=== PATIENT | female | born 1955 | race Caucasian/White ===

== ENCOUNTER 2017-06-07 19:34 | Emergency (ER) | payer BC, SELFPAY ==
[2017-06-07 20:15] VITALS: BP 150/81; PULSE 81; RESP 20; TEMP 36.9; O2SAT 98; BMI 22.4
[2017-06-07 20:35] LABS: UTC Influenza A Antigen Negative (Negative); UTC Influenza B Antigen Negative (Negative)
--- NOTE | 2017-06-07 20:47 | HMH.EDUTC ---
[facility] [place] Clinical Impression: Sinusitis Qualifiers: Sinusitis location: other Chronicity: unspecified Qualified Code(s): J32.9 - Chronic sinusitis, unspecified Disposition: Home, Self-Care Condition on Discharge: Good Instructions: Sinusitis, Sinus Headache, DI for Sinusitis Additional Instructions: Take medication as prescribed Follow up with family doctor if no improvement or worsening of symptoms REturn if needed Use Vaporizer/humidifier will help with cough and nasal congestion Over the counter Motrin or Tylenol as needed for fever or pain Prescriptions: Dextromethorphan Polistirex [Delsym] 10 ml PO Q12H PRN #250 yohannes.er.12h PRN Reason: Cough Doxycycline Monohydrate 100 mg PO BID #14 cap Fluticasone Propionate [Flonase 50mcg nasal spray 16gm] 2 spr NS DAILY #1 bottle Time of Disposition: 21:00 Medical Decision Making - Medical Records Medical records reviewed: Yes: I reviewed the patient's medical records. Vital Signs: 06/07/17 20:15 Temperature 98.4 F Temperature Source Temporal Artery Scan Pulse Rate [Right Radial] 81 Respiratory Rate 20 Blood Pressure [Right Arm] 150/81 Blood Pressure Mean [Right Arm] 104 Blood Pressure Source [Right Arm] Automatic Cuff Blood Pressure Position [Right Arm] Sitting 02 Sat by Pulse Oximetry 98 Oxygen Delivery Method Room Air - Lab Data Lab Results 06/07/17 20:15: Influenza Type A Ag Negative, Influenza Type B Ag Negative - Sam Inquiry Pt receiving controlled substance: No Sam was queried for this patient: No [facility] [place] HPI - General Stated complaint: cough, headache, sore throat Mode of Arrival: Ambulatory Source of Information: Patient Limitations: No Limitations Description of Symptoms (Recalled from Triage Doc. by RN): PT C/O COUGH, FEVER, AND EXHAUSTION FOR 3 DAYS. HEENT Symptoms (Recalled from RN notes): No Resp Symptoms (Recalled from RN notes): Yes (COUGH) Skin Symptoms (Recalled from RN notes): No MS Symptoms (Recalled from RN notes): No Functional Status (Recalled from RN notes): NA - History of Present Illness Provider Complaint: Patient state that she has been having sinus pain and pressure, cough, stuffy nose, headache for 3 days now States that she was sick a couple of weeks ago and thought she was doing better then it returned State that she is feeling sore under her eyes and feels pressure like feeling in her ears - Related Data Previous Rx's Medication Instructions Recorded Dextromethorphan Polistirex 10 ml PO Q12H PRN #250 yohannes.er.12h 06/07/17 [Delsym] Doxycycline Monohydrate 100 mg PO BID #14 cap 06/07/17 Fluticasone Propionate [Flonase 2 spr NS DAILY #1 bottle 06/07/17 50mcg nasal spray 16gm] Allergies Allergy/AdvReac Type Severity Reaction Status Date / Time Penicillins [PENICILLINS] Allergy Unknown Verified 06/07/17 19:54 - Worker's Comp Is this a Worker's Comp case?: No [facility] History I have reviewed the patient's past medical history: Yes - *Social History Smoking Status: Never smoker Alcohol Intake: never - Psychiatric History Expresses thoughts of harming self/others: None Suicide Plan Description: No Plan ROS Obtained: Yes All systems reviewed & no additional complaints - Constitutional Constitutional: Reports body ache, Reports chills, Reports fever(s), Reports headache(s) - ENT Ears, Nose, Mouth, and Throat: Reports sinus pain, Reports sinus pressure, Reports sore throat Physical Exam - General General appearance: alert, in no apparent distress - Expanded ENT Exam Nose exam: Present: sinus tenderness Nasal speculum exam: Bilateral: purulent discharge (Reports thick yellowish green drainage) Comment: Throat red, irritated drainage noted no exudate - Respiratory Respiratory exam: Present: normal lung sounds bilaterally. Absent: respiratory distress - Cardiovascular Cardiovascular exam: Present: regular rate, normal rhythm. Absent: JVD - Abdominal Exam Abdomi
--- NOTE | 2017-06-07 20:53 | ED_ITS ---
[facility] [place] Disposition Clinical Impression: Sinusitis Qualifiers: Sinusitis location: other Chronicity: unspecified Qualified Code(s): J32.9 - Chronic sinusitis, unspecified Disposition: Home, Self-Care Condition on Discharge: Good Instructions: Sinusitis, Sinus Headache, DI for Sinusitis Additional Instructions: Take medication as prescribed Follow up with family doctor if no improvement or worsening of symptoms REturn if needed Use Vaporizer/humidifier will help with cough and nasal congestion Over the counter Motrin or Tylenol as needed for fever or pain Prescriptions: Dextromethorphan Polistirex [Delsym] 10 ml PO Q12H PRN #250 yohannes.er.12h PRN Reason: Cough Doxycycline Monohydrate 100 mg PO BID #14 cap Fluticasone Propionate [Flonase 50mcg nasal spray 16gm] 2 spr NS DAILY #1 bottle Time of Disposition: 21:00 Medical Decision Making - Medical Records Medical records reviewed: Yes: I reviewed the patient's medical records. Vital Signs: 06/07/17 20:15 Temperature 98.4 F Temperature Source Temporal Artery Scan Pulse Rate [Right Radial] 81 Respiratory Rate 20 Blood Pressure [Right Arm] 150/81 Blood Pressure Mean [Right Arm] 104 Blood Pressure Source [Right Arm] Automatic Cuff Blood Pressure Position [Right Arm] Sitting 02 Sat by Pulse Oximetry 98 Oxygen Delivery Method Room Air - Lab Data Lab Results 06/07/17 20:15: Influenza Type A Ag Negative, Influenza Type B Ag Negative - Sam Inquiry Pt receiving controlled substance: No Sam was queried for this patient: No [facility] [place] HPI - General Stated complaint: cough, headache, sore throat Mode of Arrival: Ambulatory Source of Information: Patient Limitations: No Limitations Description of Symptoms (Recalled from Triage Doc. by RN): PT C/O COUGH, FEVER, AND EXHAUSTION FOR 3 DAYS. HEENT Symptoms (Recalled from RN notes): No Resp Symptoms (Recalled from RN notes): Yes (COUGH) Skin Symptoms (Recalled from RN notes): No MS Symptoms (Recalled from RN notes): No Functional Status (Recalled from RN notes): NA - History of Present Illness Provider Complaint: Patient state that she has been having sinus pain and pressure, cough, stuffy nose, headache for 3 days now States that she was sick a couple of weeks ago and thought she was doing better then it returned State that she is feeling sore under her eyes and feels pressure like feeling in her ears - Related Data Previous Rx's Medication Instructions Recorded Dextromethorphan Polistirex 10 ml PO Q12H PRN #250 yohannes.er.12h 06/07/17 [Delsym] Doxycycline Monohydrate 100 mg PO BID #14 cap 06/07/17 Fluticasone Propionate [Flonase 2 spr NS DAILY #1 bottle 06/07/17 50mcg nasal spray 16gm] Allergies Allergy/AdvReac Type Severity Reaction Status Date / Time Penicillins [PENICILLINS] Allergy Unknown Verified 06/07/17 19:54 - Worker's Comp Is this a Worker's Comp case?: No [facility] History I have reviewed the patient's past medical history: Yes - *Social History Smoking Status: Never smoker Alcohol Intake: never - Psychiatric History Expresses thoughts of harming self/others: None Suicide Plan Description: No Plan ROS Obtained: Yes All systems reviewed & no additional complaints - Constitutional Constitutional: Reports body ache, Reports chills, Reports fever(s), Reports headache
== END 2017-06-07 21:06 | disposition home or self-care (01) ==
PROVIDERS: Emergency Provider Nurse Practitioner
DX: J32.9 Chronic sinusitis, unspecified (principal); Z88.0 Allergy status to penicillin
CPT/HCPCS: 87804; 96372; 99201

== ENCOUNTER → 2019-04-01 10:26 | Outpatient (CLI) | payer BC, SELFPAY ==
--- NOTE | 2019-04-01 10:28 | MM_ITS ---
PROCEDURE: MM DIG SCREENING MAMM BI W/CAD CLINICAL INDICATION: Routine Screening Mammogram There is a history of breast cancer patient's maternal aunt. There has been a previous cyst aspiration left breast. COMPARISON: [facility] DIG MAMM-SCREEN [facility] from 07/07/2014 [facility] DIG MAMM-SCREEN [facility] from 10/11/2015 [facility] DIG MAMM-SCREEN [facility] W/CAD from 03/08/2017 TECHNIQUE: Standard CC and MLO images were obtained. R2 CAD reviewed. FINDINGS: There is a diffusely dense and heterogenic parenchymal pattern somewhat lessening the sensitivity of mammography. The findings of bilateral symmetrical. There are a couple of benign-appearing calcifications right breast. There is no suspicious lesion and no suspicious microcalcifications. IMPRESSION: Diffusely dense parenchymal pattern with no suspicious lesions seen BI-RAD Category: 2 Benign Finding(s) FOLLOW-UP: 1YR 1 Year Follow-up (A letter has been sent to the patient regarding results of the study.) Dictated by: Dr. Zeyad Merlos MD 04/02/2019 16:[address] Zeyad Merlos MD in [place] 04/02/2019 16:21
== END ==
PROVIDERS: PCP Family Medicine; Visit Provider Nurse Practitioner Obstetrics & Gynecology
DX: Z12.31 Encounter for screening mammogram for malignant neoplasm of breast (principal)
CPT/HCPCS: 77067

== ENCOUNTER 2021-10-12 21:35 | Emergency (ER) | payer MEDICARE, SELFPAY ==
[2021-10-12 21:36] VITALS: BP 137/80; PULSE 58; RESP 18; TEMP 36.4; O2SAT 99; BMI 20.8
[2021-10-12 23:50] VITALS: BP 0/0; PULSE 0; RESP 0; TEMP -17.7; TEMP 0; O2SAT 0
== END 2021-10-12 23:52 | disposition left against medical advice (07) ==
LOC: ER 21:41
PROVIDERS: Emergency Provider Emergency Medicine; PCP Internal Medicine
DX: Z53.21 Procedure and treatment not carried out due to patient leaving prior to being seen by health care provider (principal)

== ENCOUNTER 2022-03-13 12:25 | Emergency (ER) | payer MEDICARE, SELFPAY ==
[2022-03-13] VITALS (10 sets, daily range): BP systolic 131–166; BP diastolic 78–93; PULSE 56–68; RESP 13–19; TEMP 36.4–36.8; O2SAT 98–100; BMI 20.9
--- NOTE | 2022-03-13 12:19 | ECG_ITS ---
APPROVED REPORT Exam: Resting ECG HR:67 bpm ECG Measurements Heart Rate 67 AXES NJ 140 P 54 QRSd 87 QRS 15 QT 401 T 24 QTc 417 Conclusion SINUS RHYTHM POSSIBLE RIGHT VENTRICULAR CONDUCTION DELAY [RSR (QR) IN V1/V2] BORDERLINE ECG UNCONFIRMED REPORT Electronically signed by : Gamaliel Ashton MD 03/13/2022 21:38:52
--- NOTE | 2022-03-13 12:30 | XR_ITS ---
FINAL REPORT CLINICAL HISTORY: chest pain, htn FINDINGS: 2 views of the chest were obtained . The heart is normal in size. The mediastinum is within normal limits there are calcified granulomas at the left lung base.. The lungs are otherwise clear. There is no pneumothorax. Osseous structures are unremarkable. IMPRESSION: No acute cardiopulmonary process. Reviewed, Interpreted and Dictated by Chris Garcia MD Transcribed by Kate Vázquez Authenticated and [facility]
[2022-03-13 12:36] LABS: Basophils # 0.1 K/mm3 (0-0.2); Basophils % 0.9 % (0.1-2.0); Eosinophils # 0.1 K/mm3 (0.0-0.4); Eosinophils % 1.9 % (0.1-12.0); Hemoglobin 13.3 g/dL (12.2-16.2); Lymphocytes # 2.7 K/mm3 (0.7-4.5); Mean Corpuscular HGB Conc 32.5 g/dL (31.8-35.4); Mean Corpuscular Volume 89.4 fl (81-99); Mean Platelet Volume 7.3 fl (7.4-10.4); Monocytes # 0.5 K/mm3 (0.1-1.0); Monocytes % 6.8 % (1.7-9.3); Neutrophils # 3.5 K/mm3 (1.8-7.8); Neutrophils % 50.4 % (37.0-80.0); Platelet Count 328 K/mm3 (142-424); Red Blood Count 4.59 M/mm3 (4.20-5.40); Red Cell Distribution Width 13.9 % (11.5-17.5); White Blood Count 6.9 K/mm3 (4.8-10.8)
--- NOTE | 2022-03-13 12:39 | HMH.EDGENADL ---
Discharge Plan Disposition Patient Disposition: Home, Self-Care Chief Complaint: Chest Pain Prescriptions Prescriptions: No Action azithromycin 250 MG tablet 250 mg PO DIRECTED Qty: 6 0RF Rx Instructions: Take two (2) tablets on day #1, then one (1) tablet day #2 thru #5 azithromycin 250 MG tablet 250 mg PO UD DOSE PK Qty: 6 0RF Rx Instructions: Take two (2) tablets today, then one (1) tablet days #2 thru #5 levofloxacin 500 MG tablet 500 mg PO DAILY Qty: 7 0RF metronidazole 500 MG tablet 500 mg PO TID Qty: 30 0RF Referrals Follow up/Referrals: Kaycee You MD [Primary Care Provider] - See instructions Clinical Impressions Clinical Impression: Chest pain Instructions Patient Instructions: DI for Chest Pain Discharge ED Provider: Derrell Rodrigez Adult HPI General Chief complaint: Chest Pain Stated complaint: CHEST PAIN Time Seen by Provider: 03/13/22 13:00 Mode of Arrival: Ambulatory Source of Information: Patient Limitations: No Limitations Description of Symptoms (Recalled from ER Triage Doc. by RN): c/o chest pain that started this morning around 0900 that has went away at this time. Some nausea and sweating assosicated with her chest pain. Pt states it felt like a heart flutter. History of Present Illness HPI narrative: 66-year-old female, denies significant cardiac history, presents with chest pain starting approximately 9:00 this morning associated with nausea, vomiting, diaphoresis and sensation of fluttering. She denies any prior cardiac work-up, currently does not report any active chest pain. She does state that she had had fluttering in the past and had worn a heart monitor without any dangerous abnormalities noted. She denies history of high blood pressure, high cholesterol, diabetes or smoking. 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 Data Previous Rx's Medication Instructions Recorded levofloxacin 500 mg tablet 500 mg PO DAILY #7 tabs 12/28/17 metronidazole 500 mg tablet 500 mg PO TID #30 tabs 12/28/17 azithromycin 250 mg tablet 250 mg PO DIRECTED #6 tabs 08/03/18 azithromycin 250 mg tablet 250 mg PO UD DOSE PK #6 tabs 09/18/18 Allergies Allergy/AdvReac Type Severity Reaction Status Date / Time Penicillins [PENICILLINS] Allergy Unknown Verified 08/03/18 10:36 PFSH PFSH Social History Smoking Status: Never smoker alcohol intake: never current occupational status: other Travel in the last 8 weeks: None ROS Obtained: Yes Systems reviewed as appropriate & no additional complaints except as documented Constitutional Constitutional: Reports system reviewed and no additional complaints, except as documented Eyes Eyes: Reports system reviewed and no additional complaints, except as documented ENT Ears, Nose, Mouth, and Throat: Reports system reviewed and no additional complaints, except as documented Cardiovascular Cardiovascular: Reports system reviewed and no additional complaints, except as documented Respiratory Respiratory: Reports system reviewed and no additional complaints, except as documented Gastrointestinal Gastrointestingal: Reports system reviewed and no additional complaints, except as documented Genitourinary Female Genitourinary: Reports system reviewed and no additional complaints, except as documented Musculoskeletal Musculoskeletal: Reports system reviewed and no additional complaints, except as documented Integumentary/Breasts Skin/Breast: Reports system reviewed and no additional complaints, except as documented Neurologic Neurologic: Reports system reviewed and no additional complaints, except as documented Endocrine Endocrine: Reports system reviewed and no additional complaints, except as documented Hematologic/Lymphatic Henatologic/Lymphatic: Reports system reviewed and no additional complaints, except as documented Allergic/Immunologic Allergic/Immunologic: Reports
[2022-03-13 12:42] LABS: Chloride 101 mmol/L (98-107); Potassium 3.8 mmoL/L (3.5-5.1); Sodium 139 mmol/L (136-145)
[2022-03-13 12:45] LABS: Anion Gap 12.8 mEq/L (5-15); Blood Urea Nitrogen 14 mg/dl (7-17); Calcium 9.5 mg/dl (8.4-10.2); Carbon Dioxide 29 mmol/L (22.0-30.0); Creatinine Clearance Estimated 52 mL/min (50-200); Estimated Glomerular Filt Rate 100 ml/min (>60); GFR (African American) 121 ML/MIN (>60); Glucose 92 mg/dl (74-100)
[2022-03-13 12:58] LABS: Troponin I < 0.01 ng/ml (0.00-0.034)
--- NOTE | 2022-03-13 14:38 | PC.NURSE ---
Rounded on pt at this time, no new needs. Pt resting in bed with at bedside
--- NOTE | 2022-03-13 14:43 | PC.NURSE ---
2nd trop drawn at this time and sent to lab. Updated pt on POC. No other needs at this time
[2022-03-13 15:30] LABS: Troponin I < 0.01 ng/ml (0.00-0.034)
== END 2022-03-13 16:05 | disposition home or self-care (01) ==
PROVIDERS: Emergency Provider Emergency Medicine; PCP Internal Medicine
DX: R07.9 Chest pain, unspecified (principal); R11.2 Nausea with vomiting, unspecified; R61 Generalized hyperhidrosis
CPT/HCPCS: 71046; 80048; 84484; 85025; 93005; 99284

== ENCOUNTER → 2023-03-20 15:01 | Outpatient (CLI) | payer MEDICARE, SELFPAY ==
--- NOTE | 2023-03-20 15:04 | XR_ITS ---
FINAL REPORT CLINICAL HISTORY: foot pain COMPARISON: None FINDINGS: LEFT FOOT Three views of the left foot demonstrate no acute fracture or dislocation. The visualized joint spaces are normally aligned. The soft tissues are unremarkable. IMPRESSION: No acute bony abnormality. Reviewed, Interpreted and Dictated by Chris Garcia MD Transcribed by Jeniffer Valadez Authenticated and . [facility]
--- NOTE | 2023-03-20 15:04 | XR_ITS ---
FINAL REPORT CLINICAL HISTORY: foot pain COMPARISON: None FINDINGS: RIGHT FOOT 3 views of the right foot were obtained. There is no acute fracture or dislocation. Visualized joint spaces are normally aligned. Soft tissues are unremarkable. IMPRESSION: No acute bony abnormality. Reviewed, Interpreted and Dictated by Chris Garcia MD Transcribed by Jeniffer Valadez Authenticated and . [facility]
== END ==
PROVIDERS: PCP Nurse Practitioner Family; Visit Provider Podiatrist
DX: M79.671 Pain in right foot (principal); M79.672 Pain in left foot
CPT/HCPCS: 73630

== ENCOUNTER 2024-11-15 15:31 | Emergency (ER) | payer MEDICARE, SELFPAY ==
[2024-11-15] VITALS (22 sets, daily range): BP systolic 117–168; BP diastolic 74–93; PULSE 48–73; RESP 16–19; TEMP 36.8–36.9; O2SAT 97–100; BMI 20.9
--- OUTSIDE RECORDS SUMMARY | 2024-11-15 15:40 | XMS_ITS | Data Portability ---
Author Organization [facility] [place] Address [address] [place] [address] Care Team Providers Care Erector Operator Name Role Phone ZOAR FLORES Family Medicine ZORA FLORES Primary Care Provider Assessment No assessment recorded. Plan of Treatment Reminders Order Date Submit Date Provider Last Modified By Organization Details Last Modified Time Details Appointments OV NEW 30 2024 01:30P Zachary Olson MD Not available Not available Not available Lab vitamin D, 25-hydrox y, total, serum 2023 024 GUSTABO Rodríguez [facility] (Lab Registration) , [address] [place] [address] [place], [address], 11/07/2023 22:23:34 lipid panel, serum 2023 024 [email or web address] [facility] (Lab Registration) , [address] [place] [address] [place], [address], 11/14/2023 07:52:02 CBC w/ auto diff 2023 024 [email or web address] Clark [facility] (Lab Registration) , [address] [place] [address] [place], [address], 11/14/2023 07:52:02 CMP, serum or plasma 2023 024 [email or web address] [facility] (Lab Registration) , [address] [place] [address] [place], [address], 11/14/2023 07:52:02 TSH + free T4, serum [address] [facility] (Lab Registration) , [address] [facility] [place], [address], 11/14/2023 07:52:02 vitamin B12, serum 2023 024 [facility] (Lab Registration) , [address] [facility] [place], [address], 11/07/2023 21:17:10 glycohemo globin, total, blood [address] [facility] (Lab Registration) , [address] [facility] [place], [address], 11/14/2023 07:52:02 CBC w/ auto diff [address] [facility] (Lab Registration) , [address] [place] [address] [place], [address], 08/23/2022 08:08:26 CMP, serum or plasma [address] [facility] (Lab Registration) , [address] [place] [address] [place], [address], 08/23/2022 08:08:37 TSH + free T4, serum [address] [facility] (Lab Registration) , [address] [place] [address] [place], [address], 08/23/2022 08:08:48 HbA1c (hemoglob in A1c), blood 2022 023 [facility] (Lab Registration) , [address] [place] [address] [place], [address], 08/16/2022 19:23:27 lipid panel, serum [address] [facility] (Lab Registration) , [address] [place] [address] [place], [address], 08/23/2022 08:09:02 Referral podiatris t referral 2022 023 [email or web address] Aury Estevez DPM, [address], [place], [address], 03/06/2023 08:06:09 Procedures None recorded. Surgeries None recorded. Imaging XR, cervical spine, 4 or 5 view 2023 024 [email or web address] [facility] (Lab Registration) , [address] [place] [address] [place], [address], 09/12/2023 09:37:16 MAMMO, screening , digital, bilateral 2022 023 [email or web address] [facility] (Central Scheduling), [address] [place] [address] [place], [address], 01/17/2023 15:03:26 Medication Orders None recorded. Patient TargetsNo targets recorded. Patient Instructions Encounter Date Encounter Id Patient Instructions Last Modified By Organization Details Last Modified Time 08/16/2022 [id number] Stay Active Eat a healthy, balanced diet Stay hydrated; aim for 64 oz of water daily Exercise 2-3 days a week for 30-45 minutes Stay up to date on preventative care measures Labs drawn by Matt Bennett [facility] chemical laboratory scientist [email or web address] Not available 08/16/2022 10:02:36 Parts of this document were prepared using voice recognition software and may contain unrecognized dictation errors and word substitutions commonly found with electronic nurse discharge. Attempts have been made to correct errors during dictation, but some errors may remain. It should not be considered a word for word legal document, but is a record created to help myself and others care for the patient. I reserve the right to interpret this document as I believe it was intended and not necessarily the way it was transcribed. Health Assessment: [place] of Care update: yes In general, how do you feel that your health is? Excellent In the past 7 days, have had any of the following? None Do you have a Durable Power of Clerical Clerk? No Do you have a Living Will? Yes Do you have any other Advanced Care Planning Documents? Yes Do you exercise for atleast 20 minutes 2-3 times a week? Yes Have you lost any weight without trying in the past 3 months? No Do you eat fewer than 2 meals a day? No Has it been over 1 year since your last saw the dentist? No Do you or your family notice any trouble with your hearing? No Do you have hearing aids? Do you have any difficulty driving, watching TV, reading or doing other daily activities? Yes Do you wear corrective lenses? Yes Do you have any unfastened rugs or poor lighting in your home? No Do you ever ride in the car without your seatbelt? No In the past 7 days, do you need help performing any of the following activities? (Bathing, grooming, eating, dressing, toileting, dressing) No Do you have assistance, if needed? In the past 7 days, did you need help performing any of the following tasks? (Laundry, Telephone Use, Housekeeping, Food prep, Banking/Finance, Transportation, Shopping, Taking medication) No Do you have someone to help you if needed? Have you fallen 2 or more times in the past year? No Have you had any falls with injury in the past year? No Have you received any immunizations in the past year? No Which ones? Health Maintenance recommendations: Age related health measures. Parts of this document were prepared using voice recognition software and may contain unrecognized dictation errors and word substitutions commonly found with electronic nurse discharge. Attempts have been made to correct errors during dictation, but some errors may remain. It should not be considered a word for word legal document, but is a record created to help myself and others care for the patient. I reserve the right to interpret this document as I believe it was intended and not necessarily the way it was transcribed. [email or web address] Not available 08/16/2022 16:33:10 01/23/2023 [id number] Parts of this document were prepared using voice recognition software and may contain unrecognized dictation errors and word substitutions commonly found with electronic nurse discharge. Attempts have been made to correct errors during dictation, but some errors may remain. It should not be considered a word for word legal document, but is a record created to help myself and others care for the patient. I reserve the right to interpret this document as I believe it was intended and not necessarily the way it was transcribed. [email or web address] Not available 01/30/2023 08:13:05 09/10/2023 [id number] Parts of this document were prepared using voice recognition software and may contain unrecognized dictation errors and word substitutions commonly found with electronic nurse discharge. Attempts have been made to correct errors during dictation, but some errors may remain. It should not be considered a word for word legal document, but is a record created to help myself and others care for the patient. I reserve the right to interpret this document as I believe it was intended and not necessarily the way it was transcribed. [email or web address] Not available 09/10/2023 16:51:51 11/07/2023 [id number] Stay Active Eat a healthy, balanced diet Stay hydrated; aim for 64 oz of water daily Exercise 2-3 days a week for 30-45 minutes Stay up to date on preventative care measures Labs drawn by Jacques [facility] chemical laboratory scientist [email or web address] Not available 11/07/2023 10:03:41 Health Assessmen t: [place] of Care update: yes In general, how do you feel that your health is? Excellent In the past 7 days, have had any of the following? None Do you have a Durable Power of Clerical Clerk? No Do you have a Living Will? Yes Do you have any other Advanced Care Planning Documents? No Do you exercise for atleast 20 minutes 2-3 times a week? Yes Have you lost any weight without trying in the past 3 months? No Do you eat fewer than 2 meals a day? No Has it been over 1 year since your last saw the dentist? No Do you or your family notice any trouble with your hearing? No Do you have hearing aids? No Do you have any difficulty driving, watching TV, reading or doing other daily activities? Yes Do you wear corrective lenses? Yes Do you have any unfastened rugs or poor lighting in your home? No Do you ever ride in the car without your seatbelt? No In the past 7 days, do you need help performing any of the following activities? (Bathing, grooming, eating, dressing, toileting, dressing) No Do you have assistance, if needed? In the past 7 days, did you need help performing any of the following tasks? (Laundry, Telephone Use, Housekeeping, Food prep, Banking/Finance, Transportation, Shopping, Taking medication) No Do you have someone to help you if needed? Have you fallen 2 or more times in the past year? No Have you had any falls with injury in the past year? No Have you received any immunizations in the past year? No Which ones? Health Maintenance recommendations: Age related health measures. Current Opioid Prescriptions: None -treatment plan -Specialist Screening for Substance Abuse Disorder: Yes; no STUART noted -Reviewed risk factors, refer as needed Parts of this document were prepared using voice recognition software and may contain unrecognized dictation errors and word substitutions commonly found with electronic nurse discharge. Attempts have been made to correct errors during dictation, but some errors may remain. It should not be considered a word for word legal document, but is a record created to help myself and others care for the patient. I reserve the right to interpret this document as I believe it was intended and not necessarily the way it was transcribed. Not available 11/07/2023 10:13:05 Reason for Referral Manager Shell Referral for Pain of left heel Referring Physician: Zora Flores, Family Medicine, Encounter Date: 01/23/2023 Results Created Date Observation Date Name Description Value Unit Range Abnormal Flag Note LastModifiedBy Organization Detail LastModifiedTime 08/17/1908/16/2022 HEMOG LOBIN A1C HGB A1C 5.6 % 4.3-6. 1 HEMOG LOBIN LEVEL S ARE RELAT ED TO MEAN BLOOD GLUCO SE LEVEL S DURIN G THE PRECE DING 2-3 MONTH S. REFER ENCE RANGE NON-D IABET IC PATIE NTS: 4.3 - 6.1 % DIABE TIC PATIE NTS: 6.2 % AND ABOVE Not Available [facility] (Pre-Op Clinic) [address] [place] [address] [place], [address], 08/16/2022 19:23:27 08/17/1908/16/2022 HEMOG LOBIN A1C estimated average glucose(EAG) 114 mg/dL 77-128 Not Available [facility] (Pre-Op Clinic) [address] [place] [address] [place], [address], 08/16/2022 19:23:27 08/17/19 23 08/16/2022 HEMOG LOBIN A1C note Unles s other bowen noted testi ng perfo rmed at: [facility] [address] [place] [address] Demetri ricci MD Not Available [facility] (Pre-Op Clinic) [address] [facility] [place], [address], 08/16/2022 19:23:27 08/17/19 23 08/16/2022 CBC W/ AUTO DIFF WBC 6.60 K/uL 4.5-11 .5 Not Available [facility] (Pre-Op Clinic) [address] [place] [address] [place], [address], 08/16/2022 19:26:48 08/17/19 23 08/16/2022 CBC W/ AUTO DIFF RBC 4.33 M/uL 4.0-5. 4 Not Available [facility] (Pre-Op Clinic) [address] [facility] [place], [address], 08/16/2022 19:26:48 08/17/19 23 08/16/2022 CBC W/ AUTO DIFF HGB 12.6 g/dL 12.0-1 5.0 Not Available [facility] (Pre-Op Clinic) [address] [facility] [place], [address], 08/16/2022 19:26:48 08/17/19 23 08/16/2022 CBC W/ AUTO DIFF HCT 40.4 % 35-49 Not Available [facility] (Pre-Op Clinic) [address] [place] [address] [place], [address], 08/16/2022 19:26:48 08/17/19 23 08/16/2022 CBC W/ AUTO DIFF MCV 93.3 fL 80.0-1 00.0 Not Available [facility] (Pre-Op Clinic) [address] [place] [address] [place], [address], 08/16/2022 19:26:48 08/17/19 23 08/16/2022 CBC W/ AUTO DIFF MCH 29.1 pg 26.0-3 2.0 Not Available [facility] (Pre-Op Clinic) [address] [place] [address] [place], [address], 08/16/2022 19:26:48 08/17/19 23 08/16/2022 CBC W/ AUTO DIFF MCHC 31.2 g/dL 32.0-3 6.0 low Not Available [facility] (Pre-Op Clinic) [address] [place] [address] [place], [address], 08/16/2022 19:26:48 08/17/19 23 08/16/2022 CBC W/ AUTO DIFF RDW 13.2 % 11.5-1 4.5 Not Available [facility] (Pre-Op Clinic) [address] [place] [address] [place], [address], 08/16/2022 19:26:48 08/17/19 23 08/16/2022 CBC W/ AUTO DIFF platelet count 406 K/uL 142-42 4 Not Available [facility] (Pre-Op Clinic) [address] [place] [address] [place], [address], 08/16/2022 19:26:48 08/17/19 23 08/16/2022 CBC W/ AUTO DIFF MPV 9.5 fL 6.8-10 .2 Not Available [facility] (Pre-Op Clinic) [address] [place] [address] [place], [address], 08/16/2022 19:26:48 08/17/19 23 08/16/2022 CBC W/ AUTO DIFF neutrophil % 52.0 % 50-70 Not Available [facility] (Pre-Op Clinic) [address] [place] [address] [place], [address], 08/16/2022 19:26:48 08/17/19 23 08/16/2022 CBC W/ AUTO DIFF lymphocyte % 36.5 % 18.0-4 2.0 Not Available [facility] (Pre-Op Clinic) [address] [place] [address] [place], [address], 08/16/2022 19:26:48 08/17/19 23 08/16/2022 CBC W/ AUTO DIFF monocyte % 8.6 % 2.0-11 .0 Not Available [facility] (Pre-Op Clinic) [address] [place] [address] [place], [address], 08/16/2022 19:26:48 08/17/19 23 08/16/2022 CBC W/ AUTO DIFF eosinophil % 2.1 % 1.0-3. 0 Not Available [facility] (Pre-Op Clinic) [address] [place] [address] [place], [address], 08/16/2022 19:26:48 08/17/19 23 08/16/2022 CBC W/ AUTO DIFF basophil % 0.6 % 0.0-2. 0 Not Available [facility] (Pre-Op Clinic) [address] [place] [address] [place], [address], 08/16/2022 19:26:48 08/17/19 23 08/16/2022 CBC W/ AUTO DIFF immature granulocytes % 0.2 % 0.0-0. 8 Not Available [facility] (Pre-Op Clinic) [address] [place] [address] [place], [address], 08/16/2022 19:26:48 08/17/19 23 08/16/2022 CBC W/ AUTO DIFF nucleated red blood cells % 0.0 % Not Available [facility] (Pre-Op Clinic) [address] [place] [address] [place], [address], 08/16/2022 19:26:48 08/17/19 23 08/16/2022 CBC W/ AUTO DIFF neutrophil # 3.43 K/uL Not Available [facility] (Pre-Op Clinic) [address] [place] [address] [place], [address], 08/16/2022 19:26:48 08/17/19 23 08/16/2022 CBC W/ AUTO DIFF lymphocyte # 2.41 K/uL Not Available [facility] (Pre-Op Clinic) [address] [place] [address] [place], [address], 08/16/2022 19:26:48 08/17/19 23 08/16/2022 CBC W/ AUTO DIFF monocyte # 0.57 K/uL Not Available [facility] (Pre-Op Clinic) [address] [place] [address] [place], [address], 08/16/2022 19:26:48 08/17/19 23 08/16/2022 CBC W/ AUTO DIFF eosinophil # 0.14 K/uL Not Available [facility] (Pre-Op Clinic) [address] [place] [address] [place], [address], 08/16/2022 19:26:48 08/17/19 23 08/16/2022 CBC W/ AUTO DIFF basophil # 0.04 K/uL Not Available [facility] (Pre-Op Clinic) [address] [place] [address] [place], [address], 08/16/2022 19:26:48 08/17/19 23 08/16/2022 CBC W/ AUTO DIFF immature gramulocytes # 0.01 K/uL Not Available [facility] (Pre-Op Clinic) [address] [place] [address] [place], [address], 08/16/2022 19:26:48 08/17/19 23 08/16/2022 CBC W/ AUTO DIFF nucleated red blood cells # 0.00 k/uL Not Available [facility] (Pre-Op Clinic) [address] [place] [address] [place], [address], 08/16/2022 19:26:48 08/17/19 23 08/16/2022 CBC W/ AUTO DIFF manual differential NO Not Available [facility] (Pre-Op Clinic) [address] [place] [address] [place], [address], 08/16/2022 19:26:48 08/17/19 23 08/16/2022 CBC W/ AUTO DIFF note Unles s other bowen noted testi ng perfo rmed at: [facility] [address] [place] [address] Demetri ricci MD Not Available [facility] (Pre-Op Clinic) [address] [facility] [place], [address], 08/16/2022 19:26:48 08/17/19 23 08/16/2022 COMP METAB OLIC PANEL sodium 139 mmol/ L 137-14 7 Not Available [facility] (Pre-Op Clinic) [address] [place] [address] [place], [address], 08/16/2022 20:05:18 08/17/19 23 08/16/2022 COMP METAB OLIC PANEL potassium 4.5 mmol/ L 3.5-5. 1 Not Available [facility] (Pre-Op Clinic) [address] [place] [address] [place], [address], 08/16/2022 20:05:18 08/17/19 23 08/16/2022 COMP METAB OLIC PANEL chloride 103 mmol/ L 98-110 Not Available [facility] (Pre-Op Clinic) [address] [place] [address] [place], [address], 08/16/2022 20:05:18 08/17/19 23 08/16/2022 COMP METAB OLIC PANEL carbon dioxide 29 mmol/ L 21-30 Not Available [facility] (Pre-Op Clinic) [address] [place] [address] [place], [address], 08/16/2022 20:05:18 08/17/19 23 08/16/2022 COMP METAB OLIC PANEL anion gap 7 mmol/ L 6-14 Not Available [facility] (Pre-Op Clinic) [address] [place] [address] [place], [address], 08/16/2022 20:05:18 08/17/19 23 08/16/2022 COMP METAB OLIC PANEL glucose 90 mg/dL 70-115 Not Available [facility] (Pre-Op Clinic) [address] [place] [address] [place], [address], 08/16/2022 20:05:18 08/17/19 23 08/16/2022 COMP METAB OLIC PANEL BUN 17 mg/dL 7-17 Not Available [facility] (Pre-Op Clinic) [address] [place] [address] [place], [address], 08/16/2022 20:05:18 08/17/19 23 08/16/2022 COMP METAB OLIC PANEL creatinine 0.7 mg/dL 0.5-1. 5 Not Available [facility] (Pre-Op Clinic) [address] [place] [address] [place], [address], 08/16/2022 20:05:18 08/17/19 23 08/16/2022 COMP METAB OLIC PANEL BUN/creatini ne ratio 24 ratio 10-20 high Not Available [facility] (Pre-Op Clinic) [address] [place] [address] [place], [address], 08/16/2022 20:05:18 08/17/19 23 08/16/2022 COMP METAB OLIC PANEL glom filtration rate 89 mL/mi n >60- Not Available [facility] (Pre-Op Clinic) [address] [place] [address] [place], [address], 08/16/2022 20:05:18 08/17/19 23 08/16/2022 COMP METAB OLIC PANEL osmolality (calculated) 290 mosmo l/kg 275-30 1 OSMOL ALITY IS A CALCU LATIO N UTILI ZING THE SERUM /PLAS MA SODIU M, GLUCO SE AND UREA NITRO GEN (BUN) LEVEL S. FOR THE MOST ACCUR ATE RESUL T A MEASU RED SERUM OSMOL ALITY IS SUGGE STED. Not Available [facility] (Pre-Op Clinic) [address] [place] [address] [place], [address], 08/16/2022 20:05:18 04/12/20 23 08/16/2022 COMP METAB OLIC PANEL total protein 6.9 g/dL 6.2-8. 2 Not Available [facility] (Pre-Op Clinic) [address] [place] [address] [place], [address], 08/16/2022 20:05:18 08/17/19 23 08/16/2022 COMP METAB OLIC PANEL albumin 4.7 g/dL 3.5-5. 0 Not Available [facility] (Pre-Op Clinic) [address] [place] [address] [place], [address], 08/16/2022 20:05:18 08/17/19 23 08/16/2022 COMP METAB OLIC PANEL calcium 9.7 mg/dL 8.5-10 .8 Not Available [facility] (Pre-Op Clinic) [address] [place] [address] [place], [address], 08/16/2022 20:05:18 08/17/19 23 08/16/2022 COMP METAB OLIC PANEL bilirubin total 0.4 mg/dL 0.2-1. 3 Not Available [facility] (Pre-Op Clinic) [address] [place] [address] [place], [address], 08/16/2022 20:05:18 08/17/19 23 08/16/2022 COMP METAB OLIC PANEL AST (SGOT) 29 IU/L 14-36 Not Available [facility] (Pre-Op Clinic) [address] [place] [address] [place], [address], 08/16/2022 20:05:18 08/17/19 23 08/16/2022 COMP METAB OLIC PANEL ALT (SGPT) 32 IU/L 0-35 Pleas e note new refer ence inter abraham for ALT. Due to a recen t manuf actur er metho dolog y hernandes e, the refer ence inter abraham for ALT is lower effec tive August 26, 2020. Not Available [facility] (Pre-Op Clinic) [address] [place] [address] [place], [address], 08/16/2022 20:05:18 08/17/19 23 08/16/2022 COMP METAB OLIC PANEL alk phosphatase 115 IU/L 38-126 Not Available [facility] (Pre-Op Clinic) [address] [facility] [place], [address], 08/16/2022 20:05:18 08/17/19 23 08/16/2022 COMP METAB OLIC PANEL note Unles s other bowen noted testi ng perfo [facility]med at[facility] [address] [place] [address] Demetri ricci MD Not Available [facility] (Pre-Op Clinic) [address] [facility] [place], [address], 08/16/2022 20:05:18 08/17/19 23 08/16/2022 LIPID PANEL cholesterol 188 mg/dL 0-200 Not Available [facility] (Pre-Op Clinic) [address] [facility] [place], [address], 08/16/2022 20:05:19 08/17/19 23 08/16/2022 LIPID PANEL HDL 88 mg/dL 40- Not Available [facility] (Pre-Op Clinic) [address] [place] [address] [place], [address], 08/16/2022 20:05:19 08/17/19 23 08/16/2022 LIPID PANEL total chol/HDL ratio 2.1 ratio 0-4 Not Available [facility] (Pre-Op Clinic) [address] [facility] [place], [address], 08/16/2022 20:05:19 08/17/19 23 08/16/2022 LIPID PANEL triglyceride 71 mg/dL 35-135 Not Available [facility] (Pre-Op Clinic) [address] [place] [address] [place], [address], 08/16/2022 20:05:19 08/17/19 23 08/16/2022 LIPID PANEL LDL calculated 86 mg/dL 0-130 Not Available [facility] (Pre-Op Clinic) [address] [facility] [place], [address], 08/16/2022 20:05:19 08/17/19 23 08/16/2022 LIPID PANEL VLDL calculated 14 mg/dL 0-40 Not Available [facility] (Pre-Op Clinic) [address] [facility] [place], [address], 08/16/2022 20:05:19 08/17/19 23 08/16/2022 LIPID PANEL note Unles s other bowen noted testi ng perfo rmed at: [facility] [address] [place] [address] Demetri ricci MD Not Available [facility] (Pre-Op Clinic) [address] [place] [address] [place], [address], 08/16/2022 20:05:19 08/17/19 23 08/16/2022 T4 FREE T4 free 1.12 NG/dL 0.78-2 .19 Not Available [facility] (Pre-Op Clinic) [address] [place] [address] [place], [address], 08/16/2022 20:05:22 08/17/19 23 08/16/2022 T4 FREE note Nancy ricci other bowen noted testi ng perfo rmed at: [facility] [address] [place] [address] Demetri ricci MD Not Available [facility] (Pre-Op [facility]) [address] [place] [address] [place], [address], 08/16/2022 20:05:22 08/17/19 23 08/16/2022 TSH thyroid stim hormone 0.15 uIU/m L 0.465- 4.68 low Not Available [facility] (Pre[facility]Op [facility]) [address] [place] [address] [place], [address], 08/16/2022 20:41:26 08/17/19 23 08/16/2022 TSH note Unles s other bowen noted testi ng perfo rmed at: [facility] [address] [place] [address] Demetri ricci MD Not Available [facility] (Pre[facility]Op Clinic) [address] [place] [address] [place], [address], 08/16/2022 20:41:26 11/07/19 24 11/07/2023 CBC W/ AUTO DIFF WBC 7.13 K/uL 4.5-11 .5 Not Available [facility] ([facility]Op [facility]) [address] [place] [address] [place], [address], 11/07/2023 19:08:31 11/07/19 24 11/07/2023 CBC W/ AUTO DIFF RBC 4.87 M/uL 4.0-5. 4 Not Available [facility] (Pre-Op Clinic) [address] [place] [address] [place], [address], 11/07/2023 19:08:31 11/07/19 24 11/07/2023 CBC W/ AUTO DIFF HGB 14.0 g/dL 12.0-1 6.0 Not Available [facility] (Pre-Op Clinic) [address] [place] [address] [place], [address], 11/07/2023 19:08:31 11/07/19 24 11/07/2023 CBC W/ AUTO DIFF HCT 43.9 % 36-46 Not Available [facility] ([facility]Op [facility]) [address] [place] [address] [place], [address], 11/07/2023 19:08:31 11/07/19 24 11/07/2023 CBC W/ AUTO DIFF MCV 90.1 fL 80.0-1 00.0 Not Available [facility] (Pre-Op Clinic) [address] [place] [address] [place], [address], 11/07/2023 19:08:31 11/07/19 24 11/07/2023 CBC W/ AUTO DIFF MCH 28.7 pg 26.0-3 2.0 Not Available [facility] (Pre-Op Clinic) [address] [place] [address] [place], [address], 11/07/2023 19:08:31 11/07/19 24 11/07/2023 CBC W/ AUTO DIFF MCHC 31.9 g/dL 32.0-3 6.0 low Not Available [facility] ([facility]Op [facility]) [address] [place] [address] [place], [address], 11/07/2023 19:08:31 11/07/19 24 11/07/2023 CBC W/ AUTO DIFF RDW 14.2 % 11.5-1 4.5 Not Available [facility] ([facility]Op [facility]) [address] [place] [address] [place], [address], 11/07/2023 19:08:31 11/07/19 24 11/07/2023 CBC W/ AUTO DIFF platelet count 288 K/uL 142-42 4 Not Available [facility] ([facility]Op [facility]) [address] [place] [address] [place], [address], 11/07/2023 19:08:31 11/07/19 24 11/07/2023 CBC W/ AUTO DIFF MPV 10.0 fL 6.8-10 .2 Not Available [facility] (Pre[facility]Op Clinic) [address] [place] [address] [place], [address], 11/07/2023 19:08:31 11/07/19 24 11/07/2023 CBC W/ AUTO DIFF neutrophil % 43.7 % 50-70 low Not Available [facility] ([facility]Op [facility]) [address] [place] [address] [place], [address], 11/07/2023 19:08:31 11/07/19 24 11/07/2023 CBC W/ AUTO DIFF lymphocyte % 43.2 % 10.0-5 0.0 Not Available [facility] (Pre-Op Clinic) [address] [place] [address] [place], [address], 11/07/2023 19:08:31 11/07/19 24 11/07/2023 CBC W/ AUTO DIFF monocyte % 10.0 % 2.0-11 .0 Not Available [facility] ([facility]Op [facility]) [address] [place] [address] [place], [address], 11/07/2023 19:08:31 11/07/19 24 11/07/2023 CBC W/ AUTO DIFF eosinophil % 2.4 % 1.0-3. 0 Not Available [facility] (Pre[facility]Op [facility]) [address] [facility] [place], [address], 11/07/2023 19:08:31 11/07/19 24 11/07/2023 CBC W/ AUTO DIFF basophil % 0.6 % 0.0-2. 0 Not Available [facility] (Pre[facility]Op [facility]) [address] [place] [address] [place], [address], 11/07/2023 19:08:31 11/07/19 24 11/07/2023 CBC W/ AUTO DIFF immature granulocytes % 0.1 % 0.0-0. 8 Not Available [facility] (Pre[facility]Op [facility]) [address] [place] [address] [place], [address], 11/07/2023 19:08:31 11/07/19 24 11/07/2023 CBC W/ AUTO DIFF nucleated red blood cells % 0.0 % Not Available [facility] (Pre[facility]Op Clinic) [address] [place] [address] [place], [address], 11/07/2023 19:08:31 11/07/19 24 11/07/2023 CBC W/ AUTO DIFF neutrophil # 3.12 K/uL Not Available [facility] (Pre[facility]Op [facility]) [address] [place] [address] [place], [address], 11/07/2023 19:08:31 11/07/19 24 11/07/2023 CBC W/ AUTO DIFF lymphocyte # 3.08 K/uL Not Available [facility] (Pre[facility]Op [facility]) [address] [place] [address] [place], [address], 11/07/2023 19:08:31 11/07/19 24 11/07/2023 CBC W/ AUTO DIFF monocyte # 0.71 K/uL Not Available [facility] ([facility]) [address] [place] [address] [place], [address], 11/07/2023 19:08:31 11/07/19 24 11/07/2023 CBC W/ AUTO DIFF eosinophil # 0.17 K/uL Not Available [facility] ([facility]) [address] [place] [address] [place], [address], 11/07/2023 19:08:31 11/07/19 24 11/07/2023 CBC W/ AUTO DIFF basophil # 0.04 K/uL Not Available [facility] (Pre[facility]Op [facility]) [address] [place] [address] [place], [address], 11/07/2023 19:08:31 11/07/19 24 11/07/2023 CBC W/ AUTO DIFF immature gramulocytes # 0.01 K/uL Not Available [facility] ([facility]Op [facility]) [address] [place] [address] [place], [address], 11/07/2023 19:08:31 11/07/19 24 11/07/2023 CBC W/ AUTO DIFF nucleated red blood cells # 0.00 k/uL Not Available [facility] (Pre[facility]Op [facility]) [address] [place] [address] [place], [address], 11/07/2023 19:08:31 11/07/19 24 11/07/2023 CBC W/ AUTO DIFF manual differential NO Not Available [facility] (Pre[facility]Op [facility]) [address] [place] [address] [place], [address], 11/07/2023 19:08:31 11/07/19 24 11/07/2023 CBC W/ AUTO DIFF note Unles s other bowen noted testi ng perfo rmed at: [facility] [address] [place] [address] Demetri ricci MD Not Available [facility] (Pre[facility]Op [facility]) [address] [place] [address] [place], [address], 11/07/2023 19:08:31 11/07/19 24 11/07/2023 HEMOG LOBIN A1C HGB A1C 5.7 % 4.3-6. 1 HEMOG LOBIN LEVEL S ARE RELAT ED TO MEAN BLOOD GLUCO SE LEVEL S DURIN G THE PRECE DING 2-3 MONTH S. REFER ENCE RANGE NON-D IABET IC PATIE NTS: 4.3 - 6.1 % DIABE TIC PATIE NTS: 6.2 % AND ABOVE Not Available [facility] (Pre[facility]Op [facility]) [address] [place] [address] [place], [address], 11/07/2023 19:26:35 11/07/19 24 11/07/2023 HEMOG LOBIN A1C estimated average glucose(EAG) 117 mg/dL 77-128 Not Available [facility] (Pre-Op Clinic) [address] [place] [address] [place], [address], 11/07/2023 19:26:35 11/07/19 24 11/07/2023 HEMOG LOBIN A1C note Unles s other bowen noted testi ng perfo rmed at: [facility] [address] [place] [address] Demetri ricci MD Not Available [facility] ([facility]Op [facility]) [address] [place] [address] [place], [address], 11/07/2023 19:26:35 11/07/19 24 11/07/2023 T4 FREE T4 free 1.12 NG/dL 0.78-2 .19 Not Available [facility] (Pre-Op [facility]) [address] [place] [address] [place], [address], 11/07/2023 19:44:43 11/07/19 24 11/07/2023 T4 FREE note Unles s other bowen noted testi ng perfo rmed at: [facility] [address] [facility] [place] [address] Demetri ricci MD Not Available [facility] ([facility]Op [facility]) [address] [place] [address] [place], [address], 11/07/2023 19:44:43 11/07/19 24 11/07/2023 COMP METAB OLIC PANEL sodium 139 mmol/ L 137-14 7 Not Available [facility] ([facility]Op [facility]) [address] [place] [address] [place], [address], 11/07/2023 20:32:12 11/07/19 24 11/07/2023 COMP METAB OLIC PANEL potassium 4.0 mmol/ L 3.5-5. 1 Not Available [facility] ([facility]) [address] [place] [address] [place], [address], 11/07/2023 20:32:12 11/07/19 24 11/07/2023 COMP METAB OLIC PANEL chloride 100 mmol/ L 98-110 Not Available [facility] ([facility]Op [facility]) [address] [place] [address] [place], [address], 11/07/2023 20:32:12 11/07/19 24 11/07/2023 COMP METAB OLIC PANEL carbon dioxide 30 mmol/ L 21-30 Not Available [facility] ([facility]Op [facility]) [address] [place] [address] [place], [address], 11/07/2023 20:32:12 11/07/19 24 11/07/2023 COMP METAB OLIC PANEL anion gap 9 mmol/ L 6-14 Not Available [facility] (Pre[facility]Op [facility]) [address] [place] [address] [place], [address], 11/07/2023 20:32:12 11/07/19 24 11/07/2023 COMP METAB OLIC PANEL glucose 92 mg/dL 70-115 Not Available [facility] ([facility]) [address] [place] [address] [place], [address], 11/07/2023 20:32:12 11/07/19 24 11/07/2023 COMP METAB OLIC PANEL BUN 13 mg/dL 7-20 Not Available [facility] ([facility]Op [facility]) [address] [place] [address] [place], [address], 11/07/2023 20:32:12 11/07/19 24 11/07/2023 COMP METAB OLIC PANEL creatinine 0.7 mg/dL 0.5-1. 5 Not Available [facility] ([facility]Op [facility]) [address] [place] [address] [place], [address], 11/07/2023 20:32:12 11/07/19 24 11/07/2023 COMP METAB OLIC PANEL BUN/creatini ne ratio 19 ratio 10-20 Not Available [facility] ([facility]Op [facility]) [address] [place] [address] [place], [address], 11/07/2023 20:32:12 11/07/19 24 11/07/2023 COMP METAB OLIC PANEL glom filtration rate 101 mL/mi n >60- Not Available [facility] (Pre[facility]Op [facility]) [address] [place] [address] [place], [address], 11/07/2023 20:32:12 11/07/19 24 11/07/2023 COMP METAB OLIC PANEL osmolality (calculated) 289 mosmo l/kg 275-30 1 OSMOL ALITY IS A CALCU LATIO N UTILI ZING THE SERUM /PLAS MA SODIU M, GLUCO SE AND UREA NITRO GEN (BUN) LEVEL S. FOR THE MOST ACCUR ATE RESUL T A MEASU RED SERUM OSMOL ALITY IS SUGGE STED. Not Available [facility] (Pre[facility]Op [facility]) [address] [place] [address] [place], [address], 11/07/2023 20:32:12 11/07/19 24 11/07/2023 COMP METAB OLIC PANEL total protein 7.6 g/dL 6.2-8. 2 Not Available [facility] ([facility]) [address] [place] [address] [place], [address], 11/07/2023 20:32:12 11/07/19 24 11/07/2023 COMP METAB OLIC PANEL albumin 4.9 g/dL 3.5-5. 0 Not Available [facility] ([facility]) [address] [place] [address] [place], [address], 11/07/2023 20:32:12 11/07/19 24 11/07/2023 COMP METAB OLIC PANEL calcium 10.5 mg/dL 8.5-10 .8 Not Available [facility] ([facility]) [address] [place] [address] [place], [address], 11/07/2023 20:32:12 11/07/19 24 11/07/2023 COMP METAB OLIC PANEL bilirubin total 0.8 mg/dL 0.2-1. 3 Not Available [facility] ([facility]Op [facility]) [address] [place] [address] [place], [address], 11/07/2023 20:32:12 11/07/19 24 11/07/2023 COMP METAB OLIC PANEL AST (SGOT) 40 IU/L 15-46 Not Available [facility] ([facility]Op [facility]) [address] [place] [address] [place], [address], 11/07/2023 20:32:12 11/07/19 24 11/07/2023 COMP METAB OLIC PANEL ALT (SGPT) 33 IU/L 0-50 Pleas e note new refer ence inter abraham for ALT. Due to a recen t manuf actur er metho dolog y hernandes e, the refer ence inter abraham for ALT is lower effec tive August 26, 2020. Not Available [facility] (Pre[facility]Op [facility]) [address] [place] [address] [place], [address], 11/07/2023 20:32:12 11/07/19 24 11/07/2023 COMP METAB OLIC PANEL alk phosphatase 76 IU/L 38-126 Not Available [facility] (Pre-Op Clinic) [address] [facility] [place], [address], 11/07/2023 20:32:12 11/07/19 24 11/07/2023 COMP METAB OLIC PANEL note Unles s other bowen noted testi ng perfo rmed at: [facility] [address] [place] [address] Demetri ricci MD Not Available [facility] ([facility]) [address] [facility] [place], [address], 11/07/2023 20:32:12 11/07/19 24 11/07/2023 LIPID PANEL cholesterol 222 mg/dL 0-200 high Not Available [facility] (Pre[facility]Op [facility]) [address] [facility] [place], [address], 11/07/2023 20:32:13 11/07/19 24 11/07/2023 LIPID PANEL HDL 99 mg/dL 40- Not Available [facility] (Pre[facility]Op [facility]) [address] [facility] [place], [address], 11/07/2023 20:32:13 11/07/19 24 11/07/2023 LIPID PANEL total chol/HDL ratio 2.2 ratio 0-4 Not Available [facility] (Pre[facility]Op [facility]) [address] [facility] [place], [address], 11/07/2023 20:32:13 11/07/19 24 11/07/2023 LIPID PANEL triglyceride 81 mg/dL 40-160 Not Available [facility] ([facility]Op [facility]) [address] [facility] [place], [address], 11/07/2023 20:32:13 11/07/19 24 11/07/2023 LIPID PANEL LDL calculated 107 mg/dL 0-130 Not Available [facility] (Pre[facility]Op [facility]) [address] [facility] [place], [address], 11/07/2023 20:32:13 11/07/19 24 11/07/2023 LIPID PANEL VLDL calculated 16 mg/dL 0-40 Not Available [facility] ([facility]Op [facility]) [address] [facility] [place], [address], 11/07/2023 20:32:13 11/07/19 24 11/07/2023 LIPID PANEL note Unles s other bowen noted testi ng perfo rmed at: [facility] [address] [place] [address] Demetri ricci MD Not Available [facility] ([facility]) [address] [place] [address] [place], [address], 11/07/2023 20:32:13 11/07/19 24 11/07/2023 TSH thyroid stim hormone 0.41 uIU/m L 0.465- 4.68 low Not Available [facility] ([facility]Op [facility]) [address] [place] [address] [place], [address], 11/07/2023 21:03:24 11/07/19 24 11/07/2023 TSH note Nancy s other bowen noted testi ng perfo rmed at: [facility] [address] [place] [address] Demetri ricci MD Not Available [facility] ([facility]Op [facility]) [address] [place] [address] [place], [address], 11/07/2023 21:03:24 11/07/19 24 11/07/2023 VITAM IN B12 vitamin B12 >1000 pg/mL 239-93 1 high Not Available [facility] ([facility]Op [facility]) [address] [place] [address] [place], [address], 11/07/2023 21:17:10 11/07/19 24 11/07/2023 VITAM IN B12 note Unles s other bowen noted testi ng perfo rmed at: [facility] [address] [facility] [place] [address] Demetri ricci MD Not Available [facility] ([facility]Op [facility]) [address] [place] [address] [place], [address], 11/07/2023 21:17:10 11/07/19 24 11/07/2023 VITAM IN D, 25-HY DROXY vitamin D, 25-hydroxy 48.3 NG/mL 30-100 Vitam in D defic iency has been defin ed by the [facility] ty pract ice guide line as a level of serum 25-OH vitam in D less than 20 ng/mL . The Endoc rine Socie ty went on to [facility] er defin e vitam in D insuf ficie ncy as a level betwe en 20 and 29 ng/mL . Level s of vitam in D betwe en 30 and 100 ng/mL are consi dered suffi ent. Level s above 100 ng/mL are consi dered poten tiall y toxic . Not Available [facility] (Pre[facility]Op [facility]) [address] [place] [address] [place], [address], 11/07/2023 22:23:34 11/07/19 24 11/07/2023 VITAM IN D, 25-HY DROXY note Unles s other bowen noted testi ng [facility]fo [facility] [address] [place] [address] Demetri ricci MD Not Available [facility] (Pre[facility]Op [facility]) [address] [place] [address] [place], [address], 11/07/2023 22:23:34 09/08/19 23 09/06/2022 MAMMO , scree riky, digit al, bilat eral [facility] [address] [place] [address] (Phone ) DIAGNO STIC IMAGIN G REPORT ------ ------ ------ ------ ------ ------ ------ ------ ----- Analisa bell Name: SEDRICK CANALES No: [id number] Medica l Record No: [id number] Date of : 1955 Access ion No: [id number] Date of Exam: 2022 Analisa bell Type: Outpat ient Orderi ng Physic almaz: ZORA STEWART ------ ------ ------ ------ ------ ------ ------ ------ ----- FINAL REPORT PROCED URE: MAMM SCREEN ING 2D AND 3D CLINIC AL HISTOR Y: SCREEN FINDIN GS: MAMMOG JOHANNA SCREEN ING BILATE RAL HISTOR Y: Routin e screen ing exam COMPAR SMITH: August 23, 2021 TECHNI QUE: Standa rd digita l 2-D views with 3-D tomosy nthesi s DENSIT Y: Breast s are hetero geneou sly dense, which can obscur e nodule s. FINDIN GS: Benign calcif icatio ns. Scatte red areas of focal asymme try are noted. No new suspic ious mass, suspic ious calcif icatio ns or chavo ectura l distor tion is presen t. IMPRES NATI: No mammog raphic eviden ce of malign rachna BI-RAD S 2: Benign findin g RECOMM ENDATI ON: Annual mammog higinio CAD was utiliz ed during interp retati on. The analisa bell will be sent a letter from the mammog higinio depart ment with their mammog higinio result s. Authen ticate d and Electr onical ly Signed by Julien Porter MD on 2022 05:06: 58 PM MARCELINO Brandt CC'ed Logic: Orderi ng Provid er: WILBER BLAKELY CC Provid er: WILBER BLAKELY Attend ing Provid er: WILBER BLAKELY Referr ing Provid er: WILBER BLAKELY Admitt ing Provid er: WILBER BLAKELY [email or web address] [facility] (Central Scheduling) [address] [facility] [place], [address], 01/17/2023 15:03:25 09/12/19 24 09/10/2023 XR, cervi philly spine , 4 or 5 view [facility] [address] [place] [address] (Phone ) SIMBA Villarreal REPORT Name: SEDRICK CANALES : 1955 Accoun t #: [id number] Age: 67 Years Patien t Type: Outpat ient Sex: F Access ion#: [id number] Exam Descri ption: SP CERVIC AL COMPLE TE - ROUTIN E Exam Reason : cervic algia; m542 Order Date/T renetta: 2023 06:02: 00 PM Dictat ed By: Silvestre Raymundo MD Orderi Physic almaz: ZORA STEWART Attend [facility] Physic almaz: ZORA STEWART Cervic al spine multip le views HISTOR Y: cervic algia COMPAR SMITH: None TECHNI QUE: 5 views perfor med. FINDIN GS: Mild degene rative spondy losis most severe at C6-7 with disc space narrow ing and osteop hytes. There is diffus e degene rative uncove rtebra l joint diseas e at multip le levels . There is neural forami nal narrow ing noted C5-6 on both sides. Soft tissue s are normal . IMPRES NATI: debbie seaman. Electr onical ly signed by: Silvestre Raymundo MD 2023 09:33 AM EDT Workst ation: [id number] Princi pal Interp reter Name: Silvestre Raymundo [facility] er ID: [id number] PAGE 1 OF 2 Name: SEDRICK CANALES : 1955 Accoun t #: [id number] Age: 67 Years Patien t Type: Outpat ient Sex: F Access ion#: [id number] Exam Descri ption: SP CERVIC AL COMPLE TE - ROUTIN E Exam Reason : cervic algia; m542 Order Date/T renetta: 2023 06:02: 00 PM PAGE 2 OF 2 CC'ed Logic: Orderi ng Provid er: WILBER BLAKELY CC Provid er: WILBER BLAKELY Attend ing Provid er: WILBER BLAKELY Referr ing Provid er: WILBER BLAKELY Admitt ing Provid er: WILBER BLAKELY [address] (Central Scheduling) [address] [place] [address], [address], 09/12/2023 13:42:27 Result Notes Documentation Provider Name and Address Organization Details Recorded Time Mammo, Screening, Digital, Bilateral : [address] [address] (Phone) DIAGNOSTIC IMAGING REPORT - Patient Name: SEDRICK CANALES Patient No: [id number] Date of : 1955 Accession No: [id number] Date of Exam: 09/06/2022 Patient Type: Outpatient Ordering Physician: ZORA FLORES - FINAL REPORT PROCEDURE: MAMM SCREENING 2D AND 3D CLINICAL HISTORY: SCREEN FINDINGS: MAMMOGRAM SCREENING BILATERAL HISTORY: Routine screening exam COMPARISON: August 23, 2021 TECHNIQUE: Standard digital 2-D views with 3-D tomosynthesis DENSITY: Breasts are heterogeneously dense, which can obscure nodules. FINDINGS: Benign calcifications. Scattered areas of focal asymmetry are noted. No new suspicious mass, suspicious calcifications or architectural distortion is present. IMPRESSION: No mammographic evidence of malignancy BI-RADS 2: Benign finding RECOMMENDATION: Annual mammography CAD was utilized during interpretation. The patient will be sent a letter from the mammography department with their mammography results. Authenticated and TAWNY CC'ed Logic: Ordering Provider: CAROLYNN BLAKELY CC Provider: CAROLYNN BLAKELY Attending Provider: CAROLYNN BLAKELY Referring Provider: CAROLYNN BLAKELY Admitting Provider: KIT Granados [facility] 01/17/2023 15:03:25 Xr, Cervical Spine, 4 Or 5 View : [address] [address] (Phone) IMAGING REPORT Name: SEDRICK CANALES : 1955 Age: 67 Years Patient Type: Outpatient Sex: F Exam Description: SP CERVICAL COMPLETE - ROUTINE Exam Reason: cervicalgia; m542 Order Date/Time: 09/10/2023 06:02:00 PM Dictated By: Silvestre Raymundo MD Ordering Physician: ZORA FLORES Attending Physician: ZORA FLORES Cervical spine multiple views HISTORY: cervicalgia COMPARISON: None TECHNIQUE: 5 views performed. FINDINGS: Mild degenerative spondylosis most severe at C6-7 with disc space narrowing and osteophytes. There is diffuse degenerative uncovertebral joint disease at multiple levels. There is neural foraminal narrowing noted C5-6 on both sides. Soft tissues are normal. IMPRESSION: degenerative spondylosis. Electronically signed by: Silvestre Raymundo MD 09/12/2023 09:33 AM EDT Workstation: [employer] Name: Silvestre Raymundo Provider ID: [id number] PAGE 1 OF 2 Name: SEDRICK CANALES : 1955 Age: 67 Years Patient Type: Outpatient Sex: F Exam Description: SP CERVICAL COMPLETE - ROUTINE Exam Reason: cervicalgia; [id number] Order Date/Time: 09/10/2023 06:02:00 PM PAGE 2 OF 2 CC'ed Logic: Ordering Provider: CAROLYNN BLAKELY CC Provider: CAROLYNN BLAKELY Attending Provider: CAROLYNN BLAKELY Referring Provider: CAROLYNN BLAKELY Admitting Provider: CAROLYNN johnson [facility] 09/12/2023 13:42:27 Problems Name Problem SNOMED Code Status Onset Date Resolution Date Notes Provider Name and Address Organization Details Recorded Time Pain of right knee joint 1490353427403 00 Active 2022 Zora Flores NP [address], [address], [place], [address], [place] [facility] [place] & [place] 3 09:58:50 Lesion of skin of face 075520573055 Active 2022 Zora Flores NP [address], [address], [place], [address], [place] 3 10:03:45 Pain of left heel 8691874205244 109 Active 2022 Zora Flores NP [address], [address], [place], [address], [place] [facility] & [place] 3 11:50:50 Pain of toe of left foot 7776646175843 08 Active 2022 Zora Flores NP [address], [address], [place], [address], [place] [facility] & [place] 3 08:12:39 Neck pain 09175899 Active 2023 Zora Flores NP [address], [address], [place], [address], [place] [facility] & [place] 4 16:46:35 Cervical spondylosis 020057439 Active 2023 Zora Flores NP [address], [address], [place], [address], [place] & [place] 4 13:24:43 Vitamin D deficiency [id number] Active 2023 Zora Flores NP [address], [address], [place], [address], [place] 4 10:03:05 Cramp in lower limb 143293351 Active 2023 Zora Flores NP [address], [address], [place], [address], [place] 4 10:22:01 Problem Notes None recorded. Procedures Surgical History Date Name Laterality Status Provider Name and Address Organization Details Recorded Time 3 [address]ste[address]itha suarez [facility] 01/23/2023 11:16:24 Imaging Results None recorded. Procedure Notes None recorded. Medical Equipment None Reported. Allergies Allergen ID Allergen Name Allergen Category Reaction Reaction Severity Criticality Documentation Date Start Date Code Code System Note Provider Name and Address Organization Details Recorded Time 01030 Product containin g penicilli n (product) medicatio n Not available Not available Not available 08/16/2022 [id number] SNOMED anitha suarez [facility] & [place] 3 09:23:08 Medications Name Sig Start Date Stop Date Status Note LastModified by Organization Details LastModified Time ibuprofen 800 mg tablet TAKE 1 TABLET BY MOUTH THREE TIMES DAILY 09/09 completed Not Available Not Available Not Available hydrocodone 7.5 mg-acetamin ophen 325 mg tablet TAKE 1 TABLET BY MOUTH EVERY 6 HOURS NEEDED FOR MODERATE PAIN (4-6 PAIN SCALE) 01/23 completed Not Available Not Available Not Available methylpredn isolone 4 mg tablets in a dose pack TAKE BY MOUTH DIRECTED ON INSIDE OF PACKAGE 11/06 completed Not Available Not Available Not Available Vitals Date Recorded Body height Body mass index (BMI) Body weight Body temperature Oxygen saturation Oxygen saturation in Arterial blood by Pulse oximetry Heart rate Systolic And Diastolic Provider Name and Address Organization Details Last Updated DateTime 3 167.64 cm 21.6 kg/m2 72737.0 2 g 96.5 [degF] 100 % 100 % 63 /min 120/70 mm[Hg] anitha suarez [facility] & [place] 3 09:22:14 Date Recorded Body height Body mass index (BMI) Body weight Body temperature Oxygen saturation Oxygen saturation in Arterial blood by Pulse oximetry Heart rate Systolic And Diastolic Provider Name and Address Organization Details Last Updated DateTime 4 167.64 cm 21.6 kg/m2 04595.9 4 g 96.6 [degF] 97 % 97 % 80 /min 110/70 mm[Hg] anitha suarez [facility] & [place] 4 16:15:02 Date Recorded Body height Body mass index (BMI) Body weight Body temperature Oxygen saturation Oxygen saturation in Arterial blood by Pulse oximetry Heart rate Systolic And Diastolic Provider Name and Address Organization Details Last Updated DateTime 4 167.64 cm 21.6 kg/m2 82923.3 8 g 97 [degF] 97 % 97 % 72 /min 140/72 mm[Hg] anihta PANTOJA [facility] & [place] 4 09:33:08 Date Recorded Body height Body mass index (BMI) Body weight Body temperature Oxygen saturation Oxygen saturation in Arterial blood by Pulse oximetry Heart rate Systolic And Diastolic Provider Name and Address Organization Details Last Updated DateTime 3 167.64 cm 21.4 kg/m2 80173.6 3 g 96.7 [degF] 98 % 98 % 62 /min 110/68 mm[Hg] anitha suarez [facility] & [place] 3 11:14:57 Social History Question Answer Notes LastModified by [employer] Details LastModified Time Tobacco Smoking Status Never Smoker anitha suarez [facility], [facility] & [place] 08/16/2022 09:22:40 Do You Have An Advance Directive? Yes [email or web address] Information not available 01/17/2023 Are You Blind Or Do You Have Difficulty Seeing? No [email or web address] Information not available 01/17/2023 What Was The Date Of Your Most Recent Tobacco Screening? 01/23/2023 [email or web address] Information not available 10/10/2023 Are You Passively Exposed To Smoke? No [email or web address] Information not available 01/17/2023 Sex: Unknown Functional Status Question Answer Note LastModified by [employer] ion Details LastModified Time Do you use any illicit or recreational drugs? No [email or web address] Information not available 01/17/2023 What is your level of alcohol consumption? None Information not available 08/16/2022 What is your exercise level? Heavy [email or web address] Information not available 01/17/2023 Mental Status Question Answer Note LastModified by Organization D etails LastModified Time Do you feel stressed (tense, restless, nervous, or anxious, or unable to sleep at night)? [id number] [email or web address] Information not available 01/17/2023 Family History Relationship Description Onset Age of this Age Resolved Age Notes LastModified by Organization Details LastModified Time Father Myocardial infarction pt. added direct ly (08/15) [email or web address] Not available 08/15/2022 13:05:16 Father Disorder of endocrine system pt. added direct ly (08/15) [email or web address] Not available 08/15/2022 13:06:29 Son Headache pt. added direct ly (08/15) [email or web address] Not available 08/15/2022 13:06:02 Sister Autoimmune disease pt. added direct ly (08/15) [email or web address] Not available 08/15/2022 13:06:13 Medical History Condition Response Vision or Eye Problems Y Arthritis Y Gynecological History Statement/Question Response Abnormal Pap N Sexually Active? Y Obstetrics History GPAL:G 0 P 0 0 0 0 Immunizations Vaccine Type Date Status Note Provider Nam e and Address Organization Details Recorded Time zoster recombinant 07/24/2019 completed KIT Shrestha - [place] & [place] 01/17/2023 15:02:22 zoster recombinant 12/09/2019 completed KIT Shrestha - [place] & [place] 01/17/2023 15:02:22 zoster live 03/08/2017 completed KIT Shrestha - [place] & [place] 01/17/2023 15:02:22 Past Encounters Encounter ID Performer Location Encounter Start Date Encounter Closed Date Diagnosis/Indication Diagnosis SNOMED-CT Code Diagnosis ICD10 Code Diagnosis Note [id number] Zora Flores NP [facility] [address] [place] [address] 08/16/2022 09:10:28 08/16/2022 10:40:39 Adult health examination 849768853 Z00.00 annual exam todayWill check routine lab panelPatie nt very healthywil l order mammogramC scope-03/08 016; due 2025Pap-s/ p TVH EXA -08/2021 Pain of ri ght knee joint 0299694118 91350 M25.561 seems to have resolved from the past monthif this reoccurs, will order Xray History of hysterectomy 157918080 Z90.[address] Puente 3 weeks agopt doing well Screening for malignant neoplasm of breast 843416564 Z12.39 order mammogram Lesion of skin of face 6627877687 06 L98.9 recommend patient see Dermatolog y in [place] for evaluation of lesion on forehead [id number] Zora Flores NP [facility]- Dept [address], [place] [id number] 01/23/2023 11:03:08 01/23/2023 11:56:53 Pain of left heel 4067083171 028746 M79.672 pt having heel painwe did discuss likelihood of this being plantar fasciitisp t does go barefoot; recommend she wear supportive shoes referral to Dr. Estevez for further evaluation Pain of to e of left foot 2513452053 69603 M79.675 pt has great toe painno sign of gout; likely osteroarth ritis in joint spacerefer to Podiatry [id number] Zora Flores NP [facility]- Dept [address], [place] [id number] 09/10/2023 15:15:19 09/10/2023 16:50:01 Neck pain 77821580 M54.2 will get baseline xray of Cervical spinepossi ble degenerati ve disc issue vs. muscle spasm vs. pinched nervept wants to wait on medicine until we get xray resultsdis cussed starting Medrol dose pack to help with inflammati on [id number] Zora Flores NP [facility]- Dept [address] [employer] [id number] 11/07/2023 09:17:05 11/07/2023 11:30:09 Adult health examination 868389769 Z00.00 annual exam todayWill check routine lab panelPatie nt very healthy Mammo-2023 Cscope-2015; due 2025Pap-s/ p TVH EXA -2023 Screening for cardiovascular system disease 738424665 Z13.6 check lipids Diabetes m ellitus screening 961913551 Z13.1 check A1c Vitamin D deficiency 347 97464 E55.9 check vitamin-D Cramp in lower limb 4499 11974 R25.2 increase magnesium supplement 400 mg at night Health Concerns Section Related Observation LastModified by Organization Detai ls LastModified Time None Recorded Concern Status LastModified by Organization Details LastModified Time None Recorded Advance Directives Directive Y: Payers Insurance Date Sequence Insurance Name Policy Number Policy Cowart Covered Member ID Cowart Member ID Guarantor Name 11/06/2023 1 [employer] (MEDICARE REPLACEMENT/A DVANTAGE - PPO) Sedrick Canales [id number] Sedrick Canales 06/18/2019 1 [place] [id number] Kwame Canales [id number] Sedrick Canales 08/17/2022 [employer] (MEDICARE REPLACEMENT/A DVANTAGE - PPO) Sedrick Canales [id number] Sedrick Canales 06/06/2021 1 [place] [id number] Sedrick Canales [id number] Sedrick Canales 08/17/2022 1 [employer] Sedrick Canales [id number] Sedrick Canales Notes Date Note Type Note Provider Name and Address Organization Details Recorded Time 08/16/2022 text/html HCM Female Cancer screening Colonoscopy: 03/2016 Mammogram: 08/2021; will order Pap: s/p TVH 07/2022 Lung cancer: not indicated Laboratory Lipids: due today Diabetes: due todayTSH-due today Immunizations Influenza: Not vaccinated Pneumococcal: declines vaccination Tdap: unsure Zoster: x3 Other:vision/dental -up-to-date DEXA: 08/2021 Patient presents today in the clinic for her annual Medicare wellness exam. Patient is an exceptionally healthy individual. She is not taking any daily medicines. She does take cglh-ojf-avlyytk vitamins and herbs. Patient states that she is doing well overall. She did have a transvaginal hysterectomy about [address] Puente. Patient states she had developed a uterine prolapse. Patient's vital signs are well controlled. She is due for lab work today. Patient states that her only major complaint is some right knee pain that has been going on for several months. She states that the pain is only present when she kneels on her knee. She does not have any issues with mobility, popping or pain with walking. In addition, patient states that she has some lesions on her forehead that have been there for quite some time. She has never been to Dermatology to have this evaluated. Zora Flores NP [address] [place] [address], [address], [address], [facility] 08/16/2022 16:33:18 01/23/2023 text/html Patient presents today in the clinic for follow-up on some pain issues that she has been having. She states her right heel is really bothering her. She states that the pain comes and go but it is directly in the center of her heel. She does not have any previous history of plantar fasciitis. Patient states that she does walk barefoot most of the time unless she is going out of her house. Patient has seen Podiatry in the past for a callus on her right foot. Patient also states that her left great toe is causing her lot of discomfort as well. She denies any redness or swelling. No previous history of gout. Patient needs a very healthy diet. She has a lot of vegetables and lean meats. Patient had her annual exam back in August and her labs were stable. She is up-to-date on preventive care measures. 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 Zora Flores NP [address] [facility], [address], [place], [address], [facility] 01/30/2023 08:13:26 09/10/2023 text/html Patient presents today in the clinic with complaints of left-sided neck pain that has been going on for about 3 months. Patient states she was hoping it would go away but it just seems to be hanging around and sometimes it is very uncomfortable. She states last night she could barely sleep because of the discomfort. She states that it seems to be little bit better if she lays on her right side. The pain is worse when she looks up or looks to the left. She states that she feels /hears crunching in her neck. She denies any injuries or falls. No past motor vehicle accidents. She states that she has intermittent tingling in her left arm at times. Patient states that she is taken some ibuprofen here there but does not take anything regularly. Zora Flores NP [address], [address], [place], [address], [place] [facility] & [place] 09/10/2023 16:54:17 11/07/2023 text/html HCM Female Cancer screeningColonoscop y: 2016Mammogram: ap: s/p hystLung cancer: not indicated LaboratoryLipids: dueDiabetes: dueTSH-due [id number]-5 023 ImmunizationsInflue nza: DeclinesPneumococca l: DeclinesTdap: unsureZoster: x3 Other:DEXA: 2023 Patient presents today in the clinic for her annual Medicare wellness. She states she is doing well. She did go and see Dr. De La Rosa and she ordered her to have pelvic floor therapy. She did get her mammogram and bone density recently. She is taking Caltrate D supplement. Patient takes multiple tzik-ydp-hqaljsv supplements. She does have leg cramps so she was curious if there is anything else she could take for this. She denies any other current complaints Zora Flores NP [address], [address], [place], [address], [place] [facility] [facility] & [place] 11/07/2023 10:22:38 OBGyn Episode No OBEpisode recorded.
--- NOTE | 2024-11-15 15:43 | ED_ITS ---
<Statement entered by Rebecca Montoya DO - 11/16/24 01:56> I was consulted by the THIAGO, and we discussed the complexity of problems being addressed. I approve the treatment and management plan for this patient's care in the emergency department, thus performing a substantial portion of the medical decision making. Rebecca Montoya DO Discharge Plan Disposition Patient Disposition: Home, Self-Care Condition: Good Prescriptions Prescriptions: No Action No Known Home Medications Referrals Follow up/Referrals: Judy Flores PA [Primary Care Provider, Medical] - See instructions Activity Restrictions/Add. Instructions Additional Instructions/Restrictions: As we discussed I recommend Tylenol alternating 4 hours with ibuprofen. If you have persistent new or worsening signs or symptoms please follow-up with your PCP or return to the ER as needed. Clinical Impressions Clinical Impression: Headache Qualifiers: Headache type: unspecified Headache chronicity pattern: unspecified pattern I ntractability: not intractable Qualified Code(s): R51.9 - Headache, unspecified Print Language Print Language: Slovenian Discharge ED Provider: Rebecca Montoya General Adult HPI General Chief complaint: Headache Stated complaint: headache,neck pain Time Seen by Provider: 11/15/24 15:42 History of Present Illness HPI narrative: Patient presents for evaluation of headache. Patient reports that she has had a daily headache for the last 2 weeks. She has a longstanding history of neck pain over the last year that was reportedly osteoarthritis. However patient notes that over the last 2 weeks she has had a headache every day. It goes away while sleeping however comes back. Patient is taking Aleve and ibuprofen intermittently for symptoms. She reports that she went to the urgent treatment center for evaluation of this and had a discussion with the provider there that she might of had a tick of unknown duration that she found while brushing her hair. She does not know if the tick was embedded or not. She had a Lyme titer done that was negative however she was told should she have continued headache to come to the ER for evaluation. She denies any loss of motor or sensation change in vision focal neurologic deficits nausea vomiting diarrhea. Patient has been able to continue to do all of her activities of daily living and she is very fit and active. She is on no home medications. Related Data Home Medications ?Medication ?Instructions ?Recorded ?Confirmed No Known Home Medications 03/21/2303/07 Allergies Allergy/AdvReac Type Severity Reaction Status Date / Time Penicillins (PENICILLINS) Allergy Unknown Verified 03/21/23 09:02 [facility] Disclaimer: The information contained in this section may have been updated after the patient was seen, as this information can be updated by other users. Surgical History (Updated 03/21/23 @ 09:16 by IGLESIA Vu) H/O: hysterectomy Social History Smoking Status: Never smoker alcohol intake: never current occupational status: other Travel in the last 8 weeks?: None Have you lived/traveled outside US in past 30 days?: No Contact w/someone who lives/traveled outside US past 30 days?: No Exposure to someone with infectious disease in past 14 days?: No Do you have a fever (greater than 100.4 F or 38 C)?: No Have you tested positive for COVID-19?: No Exposed to someone with COVID-19 in past 14 days?: No Do you have a sore throat?: No Do you have a cough?: No Do you have any weakness?: No Do you have any diarrhea?: No Are you experiencing any unusual bleeding?: No Do you have any muscle aches/pain?: No Do you have any abdominal pain?: No Are you experiencing loss of taste or smell?: No Other Medical History Have you received the Flu Vaccine for this season: No Have you received the Pneumonia Vaccine: No ROS Obtained: Yes Systems reviewed as appropriate & no additional complaints except as documented Physical Exam General General appearance: alert and in no apparent distress Respiratory Respiratory exam: Present normal lung sounds bilaterally Cardiovascular Cardiovascular exam: Present regular rate Neurological Exam Neurological exam: Present alert, oriented X3, CN II-XII intact and normal gait; Absent motor sensory deficit Medical Decision Making Medical Records Medical records reviewed: Yes I reviewed the patient's medical records. Screening: Per USPSTF and CDC recommendations, given the prevalence of disease in our region, it is our hospital?s policy to screen for HIV and viral Hepatitis for all patients aged 18 and over and those with ongoing risk factors. Sam Inquiry Pt receiving controlled substance: No Vital Signs: 11/15/24 15:38 11/15/24 15:40 11/15/24 15:42 Temperature 98.2 F Temperature Source Oral Pulse Rate 70 72 Pulse Rate [Right Brachial] 73 Respiratory Rate 16 Blood Pressure 142/83 H 147/92 H Blood Pressure [Left Arm] 147/92 H Blood Pressure Mean 102 110 Blood Pressure Mean [Left Arm] 110 Blood Pressure Source [Left Arm] Automatic Cuff Blood Pressure Position [Left Arm] Sitting 02 Sat by Pulse Oximetry 99 98 98 Oxygen Delivery Method Room Air 11/15/24 15:50 11/15/24 16:00 11/15/24 16:10 Temperature Temperature Source Pulse Rate 69 69 66 Pulse Rate [Right Brachial] Respiratory Rate Blood Pressure 141/81 H 153/93 H 134/74 Blood Pressure [Left Arm] Blood Pressure Mean 101 113 Blood Pressure Mean [Left Arm] Blood Pressure Source [Left Arm] Blood Pressure Position [Left Arm] 02 Sat by Pulse Oximetry 98 97 98 Oxygen Delivery Method Room Air 11/15/24 16:20 11/15/24 16:40 11/15/24 17:00 Temperature Temperature Source Pulse Rate 63 65 58 L Pulse Rate [Right Brachial] Respiratory Rate 18 Blood Pressure 128/75 123/80 134/78 Blood Pressure [Left Arm] Blood Pressure Mean 93 Blood Pressure Mean [Left Arm] Blood Pressure Source [Left Arm] Blood Pressure Position [Left Arm] 02 Sat by Pulse Oximetry 99 98 97 Oxygen Delivery Method Room Air Room Air 11/15/24 17:10 11/15/24 17:20 11/15/24 17:30 Temperature Temperature Source Pulse Rate 63 57 L 66 Pulse Rate [Right Brachial] Respiratory Rate 16 19 19 Blood Pressure 130/81 131/77 117/77 Blood Pressure [Left Arm] Blood Pressure Mean 102 103 93 Blood Pressure Mean [Left Arm] Blood Pressure Source [Left Arm] Blood Pressure Position [Left Arm] 02 Sat by Pulse Oximetry 99 100 97 Oxygen Delivery Method Room Air Room Air 11/15/24 17:41 Temperature Temperature Source Pulse Rate 60 Pulse Rate [Right Brachial] Respiratory Rate 17 Blood Pressure 154/75 H Blood Pressure [Left Arm] Blood Pressure Mean 96 Blood Pressure Mean [Left Arm] Blood Pressure Source [Left Arm] Blood Pressure Position [Left Arm] 02 Sat by Pulse Oximetry 100 Oxygen Delivery Method Room Air Lab Data Lab results reviewed: Yes I reviewed the patient's lab results. Lab Results 11/15/24 16:35: WBC 7.9, RBC 4.52, Hgb 13.1, Hct 40.1, MCV 88.7, MCH 29.0, MCHC 32.7, RDW 13.2, Plt Count 255, MPV 9.5, Neut % (Auto) 51.3, Lymph % (Auto) 37.3, Randall % (Auto) 9.0, Eos % (Auto) 1.8, Baso % (Auto) 0.5, Neut # (Auto) 4.1, Lymph # (Auto) 3.0, Randall # (Auto) 0.7, Eos # (Auto) 0.1, Baso # (Auto) 0.0, ESR 4, Sodium 137, Potassium 4.2, Chloride 100, Carbon Dioxide 26, Anion Gap 15.2 H, B UN 19 H, Creatinine 0.90, Estimated Creat Clear 49, Estimated GFR 62, Est GFR ( Amer) 75, Glucose 99, Calcium 9.5, Magnesium 2.3, Total Bilirubin 0.3, AST 37 H, ALT 43, Alkaline Phosphatase 54, C-Reactive Protein < 0.3, Total Protein 7.4, Albumin 4.8, Globulin 2.6, Albumin/Globulin Ratio 1.8, Procalcitonin 0.038 11/15/24 16:35 11/15/24 16:35 Orders (Tests/Meds): ED MEDICATIONS Discontinued Medications Generic Name Dose Route Start Last Admin Trade Name Freq PRN Reason Stop Dose Admin Acetaminophen 1,000 mg 11/15/24 16:16 11/15/24 16:43 Acetaminophen 500mg Tab PO 11/15/24 16:17 Not Given ONCE ONE Dexamethasone Sodium Phosphate 10 mg 11/15/24 16:16 11/15/24 16:43 Dexamethasone 4mg/Ml 5ml Mdv IV 11/15/24 16:17 Not Given ONCE ONE Ketorolac Tromethamine 15 mg 11/15/24 16:16 11/15/24 16:43 Ketorolac 30mg/Ml Vial IV 11/15/24 16:17 Not Given ONCE ONE ORDERS Category Date Time Status CT cervical spine wo con Stat Cat Scan 11/15/24 16:[address] head/brain wo con Stat Cat Scan 11/15/24 16:16 Taken CBC w/Auto Diff [Complete Blood Count Auto Diff] Stat Lab 11/15/24 16:35 Completed CMP [Comprehensive Metabolic Panel] Stat Lab 11/15/24 16:35 Completed CRP [C-Reactive Protein] Stat Lab 11/15/24 16:35 Completed ESR [Erythrocyte Sedimentation Rate] Stat Lab 11/15/24 16:35 Completed Human Granulocytic [place]-[facility] Stat Lab 11/15/24 16:35 Received Magnesium Stat Lab 11/15/24 16:35 Completed Procalcitonin Stat Lab 11/15/24 16:35 Completed Medical Decision Narrative: In summary patient is a 69-year-old female who presents to the emergency department for evaluation of daily headache. Patient is hemodynamically stable upon arrival, afebrile. Physical exam is remarkable for a well-nourished well- developed 69-year female was currently no acute distress. Patient has no midline spinal tenderness. She has no palpable paraspinous muscle or trapezius pain on palpation. She has full flexion and extension of C-spine without pain and is able to turn to the right without difficulty however she has some discomfort when rotating to the left but still has full range of motion. Pupils equal round reactive to light. Cranials 2 through 12 intact grossly to exam patient is amatory and has no focal neurologic deficits is neurovascular intact in all 4 extremities.. Differential diagnosis includes cervicalgia versus torticollis versus osteoarthritis versus due to disc disease etc. Initial workup will be conducted with hematologic labs CT scan of the head and neck.. Initial interventions were offered including anti-inflammatories nonsteroidals muscle relaxers however patient has declined all of them. Initial workup reviewed by me shows that her hematologic labs are nonactionable my informal interpretation of her imaging shows no acute intracranial or bony abnormality prior to radiology read. Please see final read for formal interpretation.. Upon repeat evaluation reviewed patient's workup and findings with her and has her hematologic labs nonactionable including normal inflammatory markers and uncertain tick exposure I offered prophylactic doxycycline. However patient declined as she has no myalgias polyarthritis fever rash or fatigue.. Given this patient is appropriate for discharge with instructions to follow-up with PCP for persistent or new worsening signs or symptoms as there remains diagnostic uncertainty of the cause of her headache for today we ruled out any serious or life-threatening condition but she may require further workup as an outpatient. Patient verbalized understanding and agreement Critical Care Critical Care Time Critical Care Time: No
--- NOTE | 2024-11-15 16:16 | CT_ITS ---
PROCEDURE INFORMATION: Exam: CT Head Without Contrast Exam date and time: 11/15/2024 4:55 PM Age: 69 years old Clinical indication: Pain; Headache; Additional info: 2 weeks of headache TECHNIQUE: Imaging protocol: Computed tomography of the head without contrast. Radiation optimization: All CT scans at this facility use at least one of these dose optimization techniques: automated exposure control; mA and/or kV adjustment per patient size (includes targeted exams where dose is matched to clinical indication); or iterative reconstruction. COMPARISON: CT HEAD/BRAIN WO CON 11/15/2024 4:55 PM FINDINGS: Brain: Mild chronic brain volume loss and chronic small vessel ischemic changes. Cerebral ventricles: No ventriculomegaly. Paranasal sinuses: Visualized sinuses are unremarkable. No fluid levels. Mastoid air cells: Visualized mastoid air cells are well aerated. Bones: Unremarkable. No acute fracture. Soft tissues: Unremarkable. IMPRESSION: No acute intracranial findings.
--- NOTE | 2024-11-15 16:21 | CT_ITS ---
PROCEDURE INFORMATION: Exam: CT Cervical Spine Without Contrast Exam date and time: 11/15/2024 4:57 PM Age: 69 years old Clinical indication: Neck pain; Additional info: Posterior neck pain and headache TECHNIQUE: Imaging protocol: Computed tomography of the cervical spine without contrast. Radiation optimization: All CT scans at this facility use at least one of these dose optimization techniques: automated exposure control; mA and/or kV adjustment per patient size (includes targeted exams where dose is matched to clinical indication); or iterative reconstruction. COMPARISON: CT HEAD/BRAIN WO CON 11/15/2024 4:55 PM FINDINGS: Bones: Moderate to severe right neural foraminal stenosis at C6-C7. Straightening of the curvature of the cervical spine is likely positional. Multilevel degenerative changes of the cervical spine producing multiple levels of mild spinal canal stenosis. Lungs: Bilateral apical scarring. Thyroid: Thyroid nodules measuring up to 7 mm. No follow-up imaging is warranted. Soft tissues: Unremarkable. IMPRESSION: No acute fracture or malalignment of the cervical spine. COMMENTS: Consistent with the [employer]'s Incidental Findings Committee white paper (J Am Yaritza Radiol 2015): In patients aged 35 years and older with an incidental thyroid nodule equal to or greater than 1.[address], MRI or extrathyroidal US, further evaluation with dedicated thyroid US is recommended for patients with normal life expectancy and without comorbidities. For smaller nodules without suspicious features, no further evaluation or follow up is recommended.
[2024-11-15 16:45] LABS: Hematocrit 40.1 % (37.0-47.0); Hemoglobin 13.1 g/dL (12.2-16.2); Immature Granulocytes % 0.1 %; Mean Corpuscular HGB Conc 32.7 g/dL (31.8-35.4); Mean Corpuscular Hemoglobin 29.0 pg (27.0-31.2); Mean Corpuscular Volume 88.7 fl (81-99); Nucleated Red Blood Cells % 0 %; Platelet Count 255 K/mm3 (142-424); Red Blood Count 4.52 M/mm3 (4.20-5.40); Red Cell Distribution Width-SD 43.1 fL; White Blood Count 7.9 K/mm3 (4.8-10.8)
[2024-11-15 17:00] LABS: Albumin Level 4.8 g/dl (3.5-5.0); Chloride 100 mmol/L (98-107)
[2024-11-15 17:01] LABS: Potassium 4.2 mmoL/L (3.5-5.1); Sodium 137 mmol/L (136-145)
[2024-11-15 17:03] LABS: Alanine Aminotransferase 43 U/L (12-78); Aspartate Amino Transferase 37 U/L (14-36); Blood Urea Nitrogen 19 mg/dl (7-17); Creatinine Clearance Estimated 49 mL/min (50-200); Creatinine,Serum 0.90 mg/dl (0.52-1.04); Estimated Glomerular Filt Rate 62 ml/min (>60); GFR (African American) 75 ML/MIN (>60)
[2024-11-15 17:04] LABS: Albumin/Globulin Ratio 1.8 (1.1-1.8); Alkaline Phosphatase 54 U/L (38-126); Anion Gap 15.2 mEq/L (5-15); Bilirubin,Total 0.3 mg/dl (0.2-1.3); Calcium 9.5 mg/dl (8.4-10.2); Carbon Dioxide 26 mmol/L (22.0-30.0); Globulin 2.6 g/dL (1.3-3.2); Glucose 99 mg/dl (74-100); Magnesium 2.3 mg/dl (1.6-2.3); Total Protein,Serum 7.4 g/dl (6.3-8.2)
[2024-11-15 17:12] LABS: C-Reactive Protein < 0.3 mg/L (0-4)
[2024-11-15 17:46] LABS: Procalcitonin 0.038 ng/mL (0.0-2.0)
== END 2024-11-15 19:18 | disposition home or self-care (01) ==
PROVIDERS: Physician Assistant; Emergency Provider Student in an Organized Health Care Education/Training Program; PCP Nurse Practitioner Family
DX: R51.9 Headache, unspecified (principal)
CPT/HCPCS: 70450; 72125; 80053; 83735; 84145; 85025; 85651; 86140; 86666; 99285

== ENCOUNTER 2025-01-01 07:30 | Outpatient (CLI) | payer MEDICARE, SELFPAY ==
--- OUTSIDE RECORDS SUMMARY | 2025-01-01 07:33 | XMS_ITS | Clinical Summary ---
[facility] Address [address] [place] [address] Care Team Providers Care Application Analyst Name Role Phone Kwame Perez MD Primary Care Provider [phone] Allergies Active Allergy Reactions Criticality Noted Date Comments Penicillins 01/04/2016 Medications Ghjdmvkbb-NNS-Gglm p-Hyos-Scop (STAHIST PO) Take by mouth. Ac tive ciprofloxacin (CILOXAN) 0.3 % ophthalmic solutionIndication s:Acute conjunctivitis of right eye, unspecified acute conjunctivitis type Take 1-2 drops in the right eye 4 times a day. May use in the left eye if it becomes infected 5 mL 1 7 Active sulfamethoxazole-t rimethoprim (BACTRIM DS,SEPTRA DS) 800-160 MG per tabletIndications: Acute conjunctivitis of right eye, unspecified acute conjunctivitis type Take 1 tablet by mouth 2 (Two) Times a Day. 20 tablet 7 Active prednisoLONE acetate (PRED FORTE) 1 % ophthalmic suspension Administer 1 drop into affected eye 4 Times a Day for 7 days, THEN 1 drop 3 times a day for 7 days, 2 Times a Day for 7 days, THEN 1 drop Daily for 7 days. 5 mL 1 12/11/2024 8:04 AM EDT 5 025 Active Active Problems No known active problems Family History Medical History Relation Name Comments Heart attack Father Alzheimer's disease Mother Relation Name Status Comments Father Mother Social History Tobacco Use Types Packs/Day Years Used Date Smoking Tobacco: Never Alcohol Use Standard Drinks/Week Comments No 0 (1 standard drink = 0.6 oz pur e alcohol) Abuse Screen Answer Date Recorded Unsafe at Home or Work/School Not on file Feels Threatened by Someone? Not on file 03/2023 Does Anyone Keep You from Co ntacting Others or Doint Things Outside the Home? Not on file 02/14/2023 Physical Sign of Abuse Present Not on file 1 Housing Stability Answer Date Recorded Current Living Arrangements Not on file 02/04 Potentially Unsafe Housing Conditions Not on elzbieta e 02/14/2023 Family and Community Support Answer Lukas e Recorded Help with Day-to-Day Activities Not on file 02/14/2023 Lonely or Isolated Not on file 02/14/2023 Employment Answer Date Recorded Do you want help finding or keeping work or a sravani b? Not on file 02/14/2023 Disabilities Answer Date Recorded Concentrating, Remembering, or Making Decisions Difficulty Not on file 02/14/2023 Doing Errands Independently Difficulty Not on fi le 02/14/2023 Education Answer Date Recorded Help with school or training? Not on file Preferred Language Not on file 02/14/2023 Comments Unknown Sex and Gender Information Value Date Recorded Sex Assigned at Not on file Legal Sex Female 12:31 PM EDT Gender Identity Not on file Sexual Orientation Not on file Last Filed Vital Signs Vital Sign Reading Time Taken Comments Blood Pressure 110/70 05/26/2016 2:41 PM EST Pulse 82 05/26/2016 2:41 PM EST Temperature 36.7 C (98 F) 05/26/2016 2:41 PM EST Respiratory Rate - - Oxygen Saturation 98% 05/26/2016 2:41 PM EST Inhaled Oxygen Concentration - - Weight 63.5 kg (140 lb) 05/26/2016 2:41 PM EST Height 167.6 cm (5' 6 ) 05/26/2016 2:41 PM EST Body Mass Index 22.6 05/26/2016 2:41 PM EST Plan of Treatment Health Maintenance Due Date Last Done Comments DXA SCAN 1955 MAMMOGRAM 1995 COLOGUARD 11/08/2000 COLON CANCER SCREENING 5 YEA R SIGMOIDOSCOPY 11/08/2000 CT COLONOGRAPHY 11/08/2000 FECAL OCCULT BLOOD TEST 11/08/2000 FIT Testing (1 year) 11/08/2000 Pneumococcal Vaccine 50+ (1 of 1 - PCV) 11/08/2005 ZOSTER VACCINE (1 of 2) 11/08/2005 ANNUAL PHYSICAL 01/04/2016 TDAP/TD VACCINES (2 - Td or Tdap) 11/19/2023 014 COVID-19 Vaccine (1 - 2023-2 5 season) 2024 INFLUENZA VACCINE 02/04/2025 COLONOSCOPY 03/16/2026 03/16/2016, 03/07, 05/07/2004, Additional history exists COLORECTAL CANCER SCREENING 03/16/2026 HEPATITIS C SCREENING Completed 01/06/2016 Procedures Procedure Name Priority Date/Time Associated Diagnosis Comments SCANNED - COLONOSCOPY 03/16/2016 HEPATITIS C ANTIBODY Routine 01/06/2016 11:11 AM EDT Annual physical exam from Last 3 Months or Most Recently Relevant to Health Maintenance Results * SCANNED - COLONOSCOPY (03/16/2016) Kwame Perez MD CHART REVIEW TABS Final Result * Hepatitis C antibody (01/06/2016 11:11 AM EDT) Hep C Virus Ab <0.1 0.0 - 0.9 s/co ratio [facility] Comment: Negative: < 0.8 Indeterminate: 0.8 - 0.9 Positive: > 0.9 The CDC recommends that a positive HCV antibody result be followed up with a HCV Nucleic Acid Amplification test (888976). Blood Left upper arm structure / Unknown 01/06/2016 11:11 AM EDT 01/06/2016 3:42 PM EDT Comment:ARM L MANUAL DIFFERE N Narrative [facility] ([facility]) - 01/07/2016 4:08 AM EDT Performed at: 02 - [address] [id number] Director Of Counterintelligence: Arnol Trujillo PhD, Phone: [phone] Kwame Perez MD LAB BLOOD ORDERABLES Final Result [facility] (AMBULATORY) [address] [place] [address], [facility] [address] [place] [address], from Last 3 Months or Most Recently Relevant to Health Maintenance Insurance Care Teams Application Analyst Relationship Specialty Start Date End Date Kwame Perez MD [address] [place] [address] [place] [address] PCP - General Family Medicine 01/05/16
[2025-01-01 08:15] LABS: Hematocrit 41.2 % (37.0-47.0); Hemoglobin 13.7 g/dL (12.2-16.2); Immature Granulocytes % 0.2 %; Mean Corpuscular HGB Conc 33.3 g/dL (31.8-35.4); Mean Corpuscular Hemoglobin 29.5 pg (27.0-31.2); Mean Corpuscular Volume 88.8 fl (81-99); Nucleated Red Blood Cells % 0 %; Platelet Count 259 K/mm3 (142-424); Red Blood Count 4.64 M/mm3 (4.20-5.40); Red Cell Distribution Width-SD 43.9 fL; White Blood Count 5.9 K/mm3 (4.8-10.8)
[2025-01-01 08:27] LABS: Hemoglobin A1C 5.9 % (4.0-6.0)
[2025-01-01 08:49] LABS: Albumin Level 4.5 g/dl (3.5-5.0); Chloride 106 mmol/L (98-107); Potassium 4.4 mmoL/L (3.5-5.1); Sodium 136 mmol/L (136-145)
[2025-01-01 08:51] LABS: Alanine Aminotransferase 27 U/L (12-78); Aspartate Amino Transferase 30 U/L (14-36); Blood Urea Nitrogen 19 mg/dl (7-17); Creatinine,Serum 0.80 mg/dl (0.52-1.04); Estimated Glomerular Filt Rate 71 ml/min (>60); GFR (African American) 86 ML/MIN (>60)
[2025-01-01 08:52] LABS: Albumin/Globulin Ratio 2.0 (1.1-1.8); Alkaline Phosphatase 50 U/L (38-126); Anion Gap 7.4 mEq/L (5-15); Bilirubin,Total 0.6 mg/dl (0.2-1.3); Calcium 9.6 mg/dl (8.4-10.2); Carbon Dioxide 27 mmol/L (22.0-30.0); Cholesterol 227 mg/dl (140-200); Globulin 2.2 g/dL (1.3-3.2); Glucose 91 mg/dl (74-100); HDL Cholesterol 92 mg/dl (40-60); Iron 107 ug/dL (37-170); Total Protein,Serum 6.7 g/dl (6.3-8.2); Triglycerides 67 mg/dl (30-150)
[2025-01-01 09:05] LABS: Total Iron Binding Capacity 303 ug/dL (265-497)
[2025-01-01 09:07] LABS: 25-OH Vitamin D, Total 44.0 ng/mL (30-100)
[2025-01-01 09:09] LABS: Free T4 (Free Thyroxine) 1.01 ng/dl (0.78-2.19)
[2025-01-01 09:27] LABS: Thyroid Stimulating Hormone 2.48 uIU/mL (0.465-4.68)
[2025-01-01 09:31] LABS: Ferritin 38.7 ng/ml (11.1-264)
[2025-01-01 09:50] LABS: Vitamin B12 > 1000 pg/mL (239-931)
[2025-01-01 10:21] LABS: Folate > 20.00 ng/mL
== END 2025-01-01 23:59 | disposition home or self-care (01) ==
LOC: LAB 07:32
PROVIDERS: PCP Family Medicine; Visit Provider Family Medicine
DX: R73.03 Prediabetes (principal); Z13.29 Encounter for screening for other suspected endocrine disorder; Z13.0 Encounter for screening for diseases of the blood and blood-forming organs and certain disorders involving the immune mechanism; Z13.228 Encounter for screening for other metabolic disorders; Z13.220 Encounter for screening for lipoid disorders
CPT/HCPCS: 36415; 80053; 80061; 82306; 82607; 82728; 82746; 82947; 83036; 83540; 83550; 84439; 84443; 85025

== ENCOUNTER 2025-02-19 09:49 | Outpatient (CLI) | payer MEDICARE, SELFPAY ==
--- OUTSIDE RECORDS SUMMARY | 2025-01-10 07:23 | XMS_ITS | Continuity of Care Document ---
Author Organization [facility] Phone Care Team Providers Care Medical Billing Assistant Name Role Phone STEVE SKY Primary Attending KAY HIGGINS Primary Care STEVE SKY Unavailable STEVE SKY Admitting ALLERGIES AND ADVERSE REACTIONS ALLERGIES AND ADVERSE REACTIONS Code System Allergy Substance Adverse Reaction Date Reaction (Severity) Comment Status Reported By Updated By PCN (Free Text Allergy) Rash (Moderate) active [id number] on March 16, 2016 4:26:26 PM [facility] FAMILY HISTORY RELATION: Father Status: Cause of : Heart disease Age at : Unknown SNOMED-CT Diagnosis Age At Onset Information not available RELATION: Mother Status: Cause of : Alzheimer's disease Age at : Unknown SNOMED-CT Diagnosis Age At Onset Information not available RESULTS Patient: AYAKA Seymour Date of : 1955 LABORATORY RESULTS Information is not available LABORATORY NARRATIVE RESULTS Information is not available RADIOLOGY RESULTS ORDER 100: MAMM SCREENING 2D AND 3D (LOINC: 88487-5) ORDER DATE: January 07, 2025 3:10:00 PM [facility] PERFORMING LAB: [address] [id number] Final Result Date: January 08, 2025 2:08:32 AM [facility] (TECH: PRUDENCIO GOVEA MD) [address] [address] (Phone) MAMMOGRAM REPORT Name: SEDRICK MARLEY : 1955 Age: 69 Years Patient Type: Outpatient Sex: F Exam Description: MAMM SCREENING 2D \T\ 3D Exam Reason: scr Order Date/Time: 01/07/2025 11:21:58 AM Dictated By: Rogers Rodríguez MD Ordering Physician: STEVE SKY Attending Physician: STEVE SKY Exam: 3-D screening mammography including tomosynthesis and CAD (Computer Assisted Detection). Clinical indication: Asymptomatic screening exam Comparison: Exams dating back at least 1 year. TECHNIQUE: Routine bilateral 2D screening mammogram with CC and MLO views obtained. 3-D tomosynthesis and Computer assisted detection were utilized for this exam. BREAST DENSITY: The breasts are heterogeneously dense which may obscure small masses FINDINGS: No suspicious mass, architectural distortion, or suspicious calcifications are present. IMPRESSION: No evidence of malignancy in either breast Recommendation: Annual screening mammography recommended in one year PAGE 1 OF 2 Name: SEDRICK MARLEY : 1955 Age: 69 Years Patient Type: Outpatient Sex: F Exam Description: MAMM SCREENING 2D \T\ 3D Exam Reason: scr Order Date/Time: 01/07/2025 11:21:58 AM The results of this report will be communicated to the patient by letter in layman's terms. ACR BI-RADS: BI-RADS assessment category 1: Negative mammogram Mammography does not detect approximately 10-15% of breast cancers. A normal mammogram does not exclude breast cancer in a patient with palpable mass or abnormal findings on physical examination. These patients may need biopsies and when clinically indicated a biopsy should not be postponed because of a normal mammogram. If the patient has breast surgery or biopsy, FDA/SA Regulatory Guidelines mandate that this facility receive pathologic results for follow-up correlation. Electronically signed by: Rogers Rodríguez MD 01/07/2025 10:08 PM EDT RP Principal Manager Cosmetic Name: Rogers Rodríguez Provider ID: [id number] PAGE 2 OF 2 PATHOLOGY NARRATIVE RESULTS Information is not available MICROBIOLOGY RESULTS No Micro Labs/Results Exist for Patient BLOOD ADMIN RESULTS Information is not available MEDICATIONS HOME MEDICATIONS Status RXNORM NDC Medication Dose Route Frequency Dates Comments Reported By Updated By Drug Treatment Unknown DISCHARGE MEDICATIONS Status RXNORM NDC Medication Dose Route Frequency Dates Dis pense Data Comments Physician Updated By No Discharge Medication Info rmation Available INPATIENT MEDICATIONS Status RXNORM NDC Medication Dose Route Frequency Rat e Quantity Dates Indication Dispense Data Comments Physician Updated By No Inpatient Medication Info rmation Available SOCIAL HISTORY SOCIAL HISTORY - Smoking Status SNOMED-CT Social History Element Description Effective Dates Offered Cessation Comment Updated By [id number] Historical Tobacco smoking status Never Smoked [id number] on July 24, 2022 10:26:33 AM [facility] SOCIAL HISTORY - Gender Sex: Female SOCIAL HISTORY - Status : status i nformation is not available Intention in Next Year: intention information is not available SOCIAL HISTORY - Assessments Code System Description Status Date Value of Assessment Updated By Comment Assessment Information is no t available SOCIAL HISTORY - Deering Affiliation Deering information is not av ailable SOCIAL HISTORY - Legal Sex Legal Sex information is not available SOCIAL HISTORY - Sexual Behavior Sexual Orientation Gender Identity SNOMED-CT Description SNO MED -CT Description Activity Level No of Partners Partner Type UpdatedBy Information is not available SOCIAL HISTORY - Occupation Occupation information is no t available HEALTH CONCERNS Problems Concern Status Health Concern problem infor mation not available. Smoking Status Status Years Used Consumed packs p er day Health Concern smoking histo ry information not available. Family History Concern Status Health Concern family histor y information not available. ENCOUNTERS ENCOUNTER INFORMATION Reason for Visit SCREENING MAMMOGRAM Admission January 07, 2025 3:01:[address] [address] Discharge January 07, 2025 7:01:00 PM [facility] DISCHARGED TO HOME OR SELF CARE ENCOUNTER DIAGNOSES Notes information is not kia ilable. Code System Diagnosis Onset Date Diagnosis information is not available. ABSTRACT DIAGNOSES Code System Diagnosis Updated By Abatement Date Z12.31 ICD10 ENCOUNTER FOR SC REENING MAMMOGRAM FOR MALIGNANT NEOPLASM OF BREAST [id number] on January 10, 2025 11:22:56 AM UT Z12.31 ICD10 ENCOUNTER FOR SC REENING MAMMOGRAM FOR MALIGNANT NEOPLASM OF BREAST [id number] on January 10, 2025 11:22:58 AM [facility] CARE TEAM Care Medical Billing Assistant Role STEVE SKY Primary Attending KAY HIGGINS Primary Care STEVE SKY Referring STEVE SKY Admitting CARE TEAM CARE welt wheeler Role on Team Location Telecom Status Start Date End Lukas e Updated By GISELA VILLANUEVA MD PCP normal January 07, 2025 3:03:16 PM [place] January 07, 2025 7:01:00 PM UTC [id number] on January 07, 2025 3:03:16 PM [facility] JOSE DANIEL Felton MD Referring normal January 07, 2025 3:03:16 PM [place] January 07, 2025 7:01:00 PM UTC [id number] on January 07, 2025 3:03:16 PM [facility] JOSE DANIEL Felton MD Attending normal January 07, 2025 3:03:16 PM [place] January 07, 2025 7:01:00 PM UTC [id number] on January 07, 2025 3:03:16 PM [facility] JOSE DANIEL Felton MD Admitting normal January 07, 2025 3:03:15 PM [place] January 07, 2025 7:01:00 PM UTC [id number] on January 07, 2025 3:03:16 PM [place] DECLINED PCP PCP normal December 17, 2024 5:17:21 PM UT January 07, 2025 3:03:16 PM UTC [id number] on January 07, 2025 3:03:16 PM UTC SELF REFERRING Referring normal December 17, 2024 5:17:21 PM [place] January 07, 2025 3:03:16 PM UTC [id number] on January 07, 2025 3:03:16 PM UTC SELF REFERRING Attending normal December 17, 2024 5:17:21 PM UTC January 07, 2025 3:03:16 PM UT [id number] on January 07, 2025 3:03:16 PM UTC SELF REFERRING Admitting normal December 17, 2024 5:17:21 PM UTC January 07, 2025 3:03:15 PM UTC [id number] on January 07, 2025 3:03:16 PM ARC
--- OUTSIDE RECORDS SUMMARY | 2025-02-19 10:03 | XMS_ITS | Clinical Summary ---
[facility] [address] [place] [address] Care Team Providers Care Account Manager B2B Name Role Phone Kwame Perez MD Primary Care Provider [phone] [phone] Allergies Active Allergy Reactions Criticality Noted Date Comments Penicillins 01/04/2016 Medications Bawvgzdka-KZY-Xaizs -Hyos-Scop (STAHIST PO) Take by mouth. Active ciprofloxacin (CILOXAN) 0.3 % ophthalmic solutionIndications :Acute conjunctivitis of right eye, unspecified acute conjunctivitis type Take 1-2 drops in the right eye 4 times a day. May use in the left eye if it becomes infected 5 mL 1 7 Active sulfamethoxazole-tr imethoprim (BACTRIM DS,SEPTRA DS) 800-160 MG per tabletIndications:A cute conjunctivitis of right eye, unspecified acute conjunctivitis type Take 1 tablet by mouth 2 (Two) Times a Day. 20 tablet 7 Active Active Problems No known active problems [...] (2 - Td or Tdap) 11/19/2023 014 INFLUENZA VACCINE 12/05/2024 COVID-19 Vaccine (1 - 2023-2 5 season) 2025 COLONOSCOPY 03/16/2026 03/16/2016, 03/07, 05/07/2004, Additional history [...] with a HCV Nucleic Acid Amplification test ([id number]). Blood Left upper arm structure / Unknown 01/06/2016 11:11 AM EDT 01/06/2016 3:42 PM EDT Comment:ARM L MANUAL DIFFERE N Narrative [facility] (AMBULATORY) - 01/07/2016 4:08 AM EDT Performed at: 02 - [address] [id number] Corking Machine Operator: Arnol Trujillo PhD, Phone: [phone] Kwame Perez MD LAB BLOOD ORDERABLES Final Result [facility] ([facility]BULATORY) [address] [place] [address], [facility] [address] [place] [address], from Last 3 Months or Most Recently Relevant to Health Maintenance Insurance [employer] [id number] [employer] Care Teams Account Manager B2B Relationship Specialty Start Date End Date Kwame Perez MD [address] [place] [address] [place] [address] PCP - General Family Medicine 01/05/16
[2025-02-19 10:48] LABS: Hemoglobin A1C 5.3 % (4.0-6.0)
== END 2025-02-19 23:59 | disposition home or self-care (01) ==
LOC: LAB 09:50
PROVIDERS: PCP Family Medicine; Visit Provider Obstetrics & Gynecology
DX: R73.03 Prediabetes (principal)
CPT/HCPCS: 36415; 83036